=== PATIENT | male | born 1940 | race Caucasian/White ===

== ENCOUNTER 2019-08-18 12:04 | Inpatient (IN) | payer MEDICARE, OTHER ==
[2019-08-18] VITALS (15 sets, daily range): BP systolic 81–119; BP diastolic 34–71
[~2019-08-18] VITALS: Ht 175.3 cm; Wt 87.6 kg
[~2019-08-18 12:04] MED LIST: ASPIRIN EC81 MG PO; CARVEDILOL6.25 MG PO; CRESTOR40 MG PO; LASIX20 MG PO; NEXIUM40 MG PO; NOVOLOG MI100 UNITS/; PLAVIX75 MG PO; SYSTANE 0.3-0.1 EACH TOP
[2019-08-18] MEDS ORDERED: SODIUM CHLORIDE 0.9% 1000ML 2,000 ML ONE (12:21)
[2019-08-18] MEDS ORDERED: NOREPINEPHRINE INJ 4MG/4ML 8 MG in DEXTROSE 5% 250ML 250 ML IV ONE (12:45)
[2019-08-18] MEDS ORDERED: SODIUM CHLORIDE 0.9% 1000ML 2,400 ML IV SCH (12:45)
[2019-08-18] MEDS ORDERED: NOREPINEPHRINE 8 MG/D5W 250 ML 250 ML ONE (12:52)
[2019-08-18] MEDS ORDERED: ONDANSETRON HCL INJ 2MG/ML 2ML 2 MG/ML VIAL ONE (13:22)
[2019-08-18] MEDS ORDERED: FAMOTIDINE 20 MG/2 ML VIAL IV ONE ×2 (13:23→14:00)
[2019-08-18] MEDS ORDERED: PIPER-TAZ 3.375 GM 50 ML IV ONE (13:30)
--- NOTE | 2019-08-18 13:40 | Diagnostic Imaging Report ---
EXAMINATION: CHEST SINGLE (PORTABLE) INDICATION: Line placement COMPARISON: None FINDINGS: LINES/TUBES:Right IJ central venous catheter terminates in the superior vena cava. Left chest AICD. EKG leads overlie the chest. LUNGS:The lungs are well-inflated. There is perihilar fullness and indistinctness of the pulmonary vasculature. PLEURA:No pleural effusion or pneumothorax. MEDIASTINUM:The heart is enlarged. Atherosclerotic calcifications of the thoracic aorta. BONES/SOFT TISSUES:No acute osseous injury. ABDOMEN:No free air under the diaphragm. IMPRESSION: Right IJ central venous catheter terminates in the superior vena cava. Cardiomegaly and mild pulmonary edema. Signed by: Luis Solano MD on 08/18/2019 1:37 PM
[2019-08-18 13:52] LABS: BILIRUBIN,URINE NEGATIVE (NEGATIVE); CLARITY,URINE CLEAR (CLEAR); COLOR,URINE YELLOW (YELLOW); KETONES,URINE NEGATIVE (NEGATIVE); LEUKOCYTE ESTERASE ,URINE NEGATIVE (NEGATIVE); NITRITE,URINE NEGATIVE (NEGATIVE); PROTEIN,URINE DIPSTICK NEGATIVE (NEGATIVE); URINE UROBILINOGEN 0.2 mg/dL (0.2 - 1)
[2019-08-18 13:54] LABS: BASOPHILS % 0.3 % (0.0-1.0); EOSINOPHILS % 0.1 % (0.0-6.0); HEMATOCRIT 36.2 % (38.2-49.6); HEMOGLOBIN 11.8 g/dL (14.0-18.0); LYMPHOCYTES # (AUTO) 1.1 (1.0-3.2); LYMPHOCYTES % 7.9 % (18.0-39.1); MEAN CORPUSCULAR HEMOGLOBIN 31.2 pg (28-32); MEAN CORPUSCULAR HGB CONC 32.6 g/dL (31-35); MEAN CORPUSCULAR VOLUME 95.8 fL (81-99); MONOCYTES % 7.2 % (4.4-11.3); NEUTROPHILS # (AUTO) 11.5 (2.1-6.9); NEUTROPHILS % 84.1 % (38.7-80.0); PLATELET COUNT 158 x10e3/uL (140-360); RED BLOOD COUNT 3.78 x10e6/uL (4.3-5.7); RED CELL DISTRIBUTION WIDTH 12.4 % (11.7-14.4)
[2019-08-18] MEDS ORDERED: ONDANSETRON HCL INJ 2MG/ML 2ML 2 MG/ML VIAL IV ONE (14:00)
--- NOTE | 2019-08-18 14:00 | NUR ---
see printed off vital sign sheet to chart
[2019-08-18 14:06] LABS: ALBUMIN 2.8 g/dL (3.5-5.0); ALBUMIN/GLOBULIN RATIO 1.2 (0.8-2.0); CREATININE, SERUM 2.45 mg/dL (0.72-1.25)
[2019-08-18 14:15] LABS: AMORPHOUS SEDIMENT,URINE FEW (FEW); BACTERIA,URINE FEW /HPF; RBC,URINE 0-5 /HPF (0-5)
[2019-08-18 14:22] LABS: B-TYPE NATRIURETIC PEPTIDE2 294.5 pg/mL (0-100)
[2019-08-18] MEDS ORDERED: LACTOBACILLUS ACIDOPHILUS CAPSULE PO ONE (14:30)
[2019-08-18] MEDS ORDERED: SODIUM CHLORIDE 0.9% 1000ML 2,000 ML IV SCH (14:30)
[2019-08-18] MEDS ORDERED: ASPIRIN 81 MG CHEW TAB PO ONE ×2 (14:45→22:00)
[2019-08-18] MEDS ORDERED: DEXTROSE 50% SYRINGE 50 ML IV PRN ×2 (14:45→23:15)
[2019-08-18] MEDS ORDERED: ONDANSETRON HCL INJ 2MG/ML 2ML 2 MG/ML VIAL IV PRN (14:45)
[2019-08-18] MEDS ORDERED: SODIUM CHLORIDE FLUSH 10 ML SYR INJ PRN (14:45)
[2019-08-18] MEDS: SODIUM CHLORIDE 0.9% 1000ML 1,000 ML IV SCH ×2 (14:50→22:37)
--- OUTSIDE RECORDS SUMMARY | 2019-08-18 14:57 | XMS REPORT ---
Author Author [facility] Address Unknown Phone Unavailable Care Team Providers Care Data Coordinator Name Role Phone Iris ALBRIGHT Unavailable Unavailable Problems This patient has no known problems. Allergies, Adverse Reactions, Alerts This patient has no known allergies or adverse reactions. Medications This patient has no known medications. Results Test Description Test Time Test Comments Text Results Atomic Results Result Comments CHEST SINGLE (PORTABLE) 2019-08-18 13:34:00 [place] [address] Patient Name: ROHIT POSEY MR #: [id number] : 1940 Age/Sex: 79/M Req #: [id number] Adm Physician: Ordered by: SAYDA ALBRIGHT MD Report #: [id number] Location: ER Room/Bed: Procedure: [id number] DX/CHEST SINGLE (PORTABLE) Exam Date: 08/18/19 Exam Time: 1321 REPORT STATUS: Signed EXAMINATION: CHEST SINGLE (PORTABLE) IND ICATION: Line placement COMPARISON: None FINDINGS: LINES/TUBES:Right IJ central venous catheter terminates in the superior vena cava. Left chest AICD. EKG leads overlie the chest. LUNGS:The lungs are well-inflated. There is perihilar fullness and indistinctness of the pulmonary vasculature. PLEURA:No pleural effusion or pneumothorax. MEDIASTINUM:The heart is enlarged. Atherosclerotic calcifications of the thoracic aorta. BONES/SOFT TISSUES:No acute osseous injury. ABDOMEN:No free air under the diaphragm. IMPRESSION: Right IJ central venous catheter terminates in the superior vena cava. Cardiomegaly and mild pulmonary edema. Signed by: Dane Solnao MD on 08/18/2019 1:37 PM Dictated By: DANE SOLANO MD [id number] Transcribed By: JOSEPHINE on 08/18/19 2047 COPY TO: SAYDA ALBRIGHT MD
[2019-08-18] MEDS ORDERED: DIATRIZOATE MEGL/DIATRIZOA SOD 30 ML BTL PO ONE (15:16)
--- NOTE | 2019-08-18 15:21 | NUR ---
H&P cc: diarrhea/abdominal pain HPI: 79yoM, admitted to hospital with diarrhea and abdominal pain, found to be septic. Started on IVF and antibiotics and pressors; PMH: HTN, HLD, Pshx: unknown Allergies; see emr FH/SH; unknown Meds; see MAR ROS: unreliable v/s; revd PE BIPAP mask in place tired appearing anicteric ns1s2 reduced BS soft; nd; mild tenderness no e/t awake; skin dry flat affect labs/meds revd A/P: 79yoyoM Septic shock Diarrhea DEON/AMS Acute resp falure Acute cholecystitis NSTEMI DM2 PLAN IV abx; IVF; Heparin gtt Sx consult; Pulm consult; Cardio consult hba1c/lipids C.diff testing Insulin gtt PPI on AC Dispo: f/u further testing; cct>35mins
--- NOTE | 2019-08-18 15:30 | NUR ---
RECEIVED PT FROM ER, 2L BOLUS INFUSING PT ON LEVOPHED AT 30, BP 86/34. PAGED MD MARIE AWAITING CALL BACK. DR. TENA SHELTON RECEIVED ORDERS
--- NOTE | 2019-08-18 15:50 | NUR ---
SPOKE TO RECEIVED ORDERS FOR VASOPRESSIN, NOTIFY OF SUJATHA MONTGOMERY STATES HE WILL BE HERE LATER TO SEE PATIENT
[2019-08-18] MEDS ORDERED: VASOPRESSIN 100 UNIT in DEXTROSE 5% 100ML 100 ML IV PRN (16:00)
[2019-08-18 16:22] LABS: ABG HCO3 14 mmol/L (23-28); ABG PCO2 30 mmHg (41-51); ABG PH 7.28 (7.31-7.41); ABG PO2 193 mmHg (80-105)
[2019-08-18] MEDS ORDERED: PHENYLEPHRINE 10MG/ML VIAL 40 MG in DEXTROSE 5% 250ML 250 ML IV PRN (16:30)
--- NOTE | 2019-08-18 16:30 | NUR ---
PT BEGAN VOMITING, NOTIFIED RECEIVED ORDERS FOR PHENERGAN WILL MEDICATED ACCORDING TO MAR
[2019-08-18] MEDS ORDERED: PROMETHAZINE 12.5MG/ NACL 0.9% 50 ML ONE (16:42)
[2019-08-18] MEDS ORDERED: PROMETHAZINE 12.5MG/ NACL 0.9% 12.5 MG/50 ML BAG IV PRN (16:45)
[2019-08-18] MEDS: NOREPINEPHRINE 8 MG/D5W 250 ML 250 ML IV SCH ×2 (17:00→22:20)
[2019-08-18] MEDS ORDERED: ENOXAPARIN SOD INJ 40 MG/0.4 ML SYR SC SCH (17:00)
--- NOTE | 2019-08-18 17:00 | NUR ---
PT BP 89/58 PT STARTED ON PHENYLEPHRINE, WILL CONTINUE OT MONITOR CLOSELY
[2019-08-18] MEDS: INSULIN REGULAR, HUMAN 100 UNIT/1 ML 3ML VIAL SQ SCH ×2 (17:05→21:00)
--- NOTE | 2019-08-18 18:16 | NUR ---
HERE TO SEE PATIENT EXPLAINED AT LENGTH WHO HE WAS AND WHY HE WAS HERE TO SEE HIM, PT STATES HE DOES NOT WISH TO SEE HIM AND THAT HE HAS BEEN SICK FOR A LONG TIME, PT ASKED DO YOU THINK I NEED TO SEE HIM THIS RN STATED THAT HE HAD AN INFECTION WHICH IS WHY MD WAS HERE TO SEE HIM, ASKED IF HE UNDERSTOOD WHAT WAS BEING TOLD TO HIM PT STATES THAT HE DOES. ASKED IF HE WOULD LIKE FOR HIM TO SEE HIM PT STATES NO I DO NOT. INFORMED .
--- NOTE | 2019-08-18 21:09 | Diagnostic Imaging Report ---
EXAM: CT Chest, Abdomen and Pelvis WITHOUT contrast INDICATION: Weakness and shortness of breath COMPARISON: None. TECHNIQUE: Chest, abdomen and pelvis were scanned utilizing a multidetector helical scanner from the lung apex to the pubic symphysis without administration of IV contrast. Absence of intravenous contrast decreases sensitivity for detection of focal lesions and vascular pathology. Coronal and sagittal reformations were obtained. Routine protocol was performed. Dose modulation, iterative reconstruction, and/or weight based adjustment of the mA/kV was utilized to reduce the radiation dose to as low as reasonably achievable. IV CONTRAST: None. ORAL CONTRAST: None RADIATION DOSE: Total DLP: 950.66 mGy*cm Estimated effective dose: (DLP x 0.015 x size factor) mSv COMPLICATIONS: None FINDINGS: LINES and TUBES: Implanted cardiac device in the soft tissues of the anterior upper left chest with transvenous leads extending to right atrium, right ventricle and coronary sinus. Alvarez catheter is noted. An apparent rectal tube is present. LUNGS AND AIRWAYS: Mild central lobular emphysema with bronchial wall thickening and mild bronchiectasis. Subpleural fibrotic changes in the lung bases. Multiple pulmonary nodules in the left upper lobe (series 4, image [id number]) measuring up to 5 mm. Trachea and main bronchi are clear. PLEURA: Small bilateral pleural effusions. No pneumothorax. HEART AND MEDIASTINUM: The thyroid gland is normal. No mediastinal, hilar or axillary lymphadenopathy. Evaluation for hilar adenopathy is compromised without contrast. Moderate cardiomegaly.. There is no pericardial effusion. Thoracic aorta is atherosclerotic. Extensive coronary artery calcification. Aortic valve calcifications. No dilatation of the thoracic aorta or main pulmonary artery. HEPATOBILIARY: No focal hepatic lesions. No biliary ductal dilation. GALLBLADDER: There is ill-defined radiopaque material within the gallbladder which may represent sludge or minimally opaque calculus. The gallbladder wall appears thickened. There is some fat stranding adjacent to the gallbladder. SPLEEN: No splenomegaly. PANCREAS: No focal masses or ductal dilatation. ADRENALS: No adrenal nodules KIDNEYS/URETERS: No hydronephrosis. No cystic or solid mass lesions. No stones. GI TRACT: No abnormal distention, wall thickening, or evidence of bowel obstruction. There is thickening of the wall of the gastric antrum and proximal duodenum. The appendix is not conspicuously visualized. PELVIC ORGANS/BLADDER: Urinary bladder contains a Alvarez catheter and is decompressed. There is some air in the bladder. A balloon is seen in the rectum. Seeds are seen in the prostate bed. No discrete abnormal mass or fluid collection in the pelvis. LYMPH NODES: No dominant lymph node mass is seen in the abdomen, retroperitoneum or pelvis. VESSELS: Extensive aortoiliac atherosclerosis with calcified plaque. No aneurysm. PERITONEUM / RETROPERITONEUM: No pneumoperitoneum or ascites. BONES: No acute or suspicious bony lesions. There are degenerative changes in the lumbar spine with particular disc space narrowing at L4-5. Wire sternotomy sutures are present. SOFT TISSUES: Superficial surrounding soft tissue shows subcutaneous air over the lower anterior abdomen likely representing an injection site. IMPRESSION: 1. There is ill-defined radiopaque material in the gallbladder likely representing sludge, with gallbladder wall thickening and adjacent fat stranding. Findings are suspicious for cholecystitis. There is also wall thickening of the gastric antrum and proximal duodenum and gastritis or duodenal ulcer disease is also a consideration. 2. Extensive atherosclerotic calcification. 3. Moderate centrilobular emphysema. Nodular densities in the left upper lobe are of indeterminate significance. Consider follow-up noncontrast chest CT in 3 months to reassess for stability. Signed by: Dr. Nando Lopez M.D. on 08/18/2019 9:06 PM
--- NOTE | 2019-08-18 21:09 | Consultation ---
DATE OF CONSULTATION: 08/18/2019 I was consulted to see the patient for Infectious Disease consultation. I came to see the patient. I went in the room, the nurse was at the bedside. I indicated to the patient after introducing myself that his physician wanted to come to see him on consult. The patient states he does not want me to see him on Infectious Disease consultation at this point. I have called and informed Dr. Odonnell. MD LUC Hale/KETTY /[id number]
[2019-08-18 21:49] LABS: CREATINE KINASE MB 145.2 ng/mL (0-5.0)
--- NOTE | 2019-08-18 21:55 | NUR ---
Spoke to Dr. Odonnell regarding patient's CT Abd/Pelvis results, elevated troponins and glucose. Multiple orders and consults received and initiated.
[2019-08-18] MEDS ORDERED: PIPER-TAZ 3.375 GM / NS 50ML IV SCH (22:00)
--- NOTE | 2019-08-18 22:00 | NUR ---
Spoke to Dr. Tinsley regarding new consult, patient's status, and current orders. New orders received and implemented.
--- NOTE | 2019-08-18 22:10 | NUR ---
Call placed to Dr. Sandy Nazario to inform of new consult and patient's status. Awaiting callback.
[2019-08-18] MEDS ORDERED: HEPARIN 25,000 UNIT 900 UNIT in DEXTROSE 5% 250ML 250 ML IV SCH (22:15)
[2019-08-18 22:29] LABS: CHOL/HDL RATIO 2.8 (3.9-4.7)
[2019-08-18] MEDS ORDERED: HEPARIN SOD (PORCINE) 1000 UNIT/ML 10ML MDV IM ONE ×2 (22:30→23:00)
[2019-08-18 22:39] LABS: CREATINE KINASE MB 161.8 ng/mL (0-5.0)
[2019-08-18] MEDS ORDERED: HEPARIN 25,000 UNIT DRIP IV ONE (22:49)
[2019-08-18] MEDS ORDERED: HEPARIN SOD (PORCINE) 1000 UNIT/ML SDV ONE (22:50)
[2019-08-18] MEDS ORDERED: HEPARIN SOD (PORCINE) 5,000 UNIT/ML VIAL INJ ONE (22:51)
[2019-08-18 23:00] LABS: INR 1.17; PARTIAL THROMBOPLASTIN TIME 33.4 seconds (23.8-35.5); PROTHROMBIN TIME 15.5 seconds (11.9-14.5)
[2019-08-18] MEDS ORDERED: POTASSIUM CHLORIDE 20MEQ/100ML 100 ML IV PRN (23:00)
[2019-08-18] MEDS: HEPARIN 25,000 UNIT 25,000 UNIT in DEXTROSE 5% 250ML 250 ML IV SCH (23:00)
[2019-08-18] MEDS ORDERED: POTASSIUM CHLORIDE 20MEQ/100ML 200 ML IV PRN (23:00)
[2019-08-18] MEDS ORDERED: MAGNESIUM SULF 1GRAM/DEXTROSE 100 ML IV PRN (23:00)
[2019-08-18] MEDS: SODIUM BICARBONATE 8.4% 50 ML in SODIUM CHLORIDE 0.9% 1000ML 1,000 ML IV SCH (23:00)
[2019-08-18] MEDS ORDERED: INSULIN REGULAR, HUMAN 3ML VL 100 UNIT in SODIUM CHLORIDE 0.9% 100 ML 100 ML IV SCH ×2 (23:00)
[2019-08-18] MEDS: PANTOPRAZOLE 40 MG 10ML VIAL IV SCH (23:00)
[2019-08-18] MEDS ORDERED: SODIUM CHLORIDE 0.9% 100 ML ONE (23:08)
[2019-08-18] MEDS ORDERED: INSULIN REGULAR, HUMAN 3ML VL 100 UNIT in SODIUM CHLORIDE 0.45% 100 ML 100 ML IV SCH ×2 (23:15)
[2019-08-18] MEDS ORDERED: SODIUM BICARBONATE 8.4% SYRING 50 ML ONE (23:19)
[2019-08-18 23:25] LABS: CREATINE KINASE MB 165.1 ng/mL (0-5.0)
[2019-08-18] MEDS: PIPER-TAZ 3.375 GM 50 ML IV SCH (23:32)
--- NOTE | 2019-08-18 23:35 | Consultation ---
DATE OF CONSULTATION: 08/18/2019 Critical Care Consultation REASON FOR CONSULT: ICU management. CHIEF COMPLAINT: Abdominal pain. HISTORY OF PRESENT ILLNESS: Mr. Espinosa is an 79-year-old male who is a patient of Dr. Blas Pond, presented with abdominal pain to the emergency room. The patient reports that he was checked his blood sugar this morning and was running low and he was having vomiting and diarrhea. He is still having abdominal pain. It is very tender. He had severe diarrhea and this has occurred several times, which it was watery. He denies any chest pain, shortness of breath. No black stools. He has AICD pacemaker and congestive heart failure. In the emergency room, patient became hypotensive, was given 3 L of fluid, started on vasopressors, IV antibiotics were started. ID and Critical Care consultation were done and the patient was moved to ICU. REVIEW OF SYSTEMS: GENERAL: Denies any fever or chills. HEAD: Denies any head trauma. ENT: Denies any earache. CVS: Denies any chest pain. RESPIRATORY: Denies any shortness of breath. GI: Denies any nausea or vomiting. MUSCULOSKELETAL: Denies any arthralgias, myalgias. NEURO: Denies any focal weakness. The rest of the review of systems are negative except as in HPI. PAST MEDICAL HISTORY: Chronic coronary artery disease, diabetes, hypertension, AICD, heart failure. PAST SURGICAL HISTORY: CABG, bypass surgery. FAMILY AND SOCIAL HISTORY: He does not smoke. Does not drink. PHYSICAL EXAMINATION: VITAL SIGNS: Temperature 98.2, pulse of 90, blood pressure 109/55, respiratory rate is 18, and O2 saturation 100% on 2 L. HEENT: Head atraumatic, normocephalic. NECK: Supple. CHEST: No crackles. No wheezing. HEART: S1, S2 audible. ABDOMEN: Severely tender on exam. Bowel sounds are sluggish. EXTREMITIES: No pedal edema. NEUROLOGIC: Awake, alert. LABORATORY DATA: Lactic acid 3.4, 5.7 was initially, BNP 294. CT abdomen and pelvis was not done. Chest x-ray reviewed, no congestion. ASSESSMENT AND PLAN: Mr. Espinosa is 79-year-old male with septic shock, lactic acid is high, moderate to severe abdominal pain. CT abdomen was not done in the emergency room. Current problem: 1. Septic shock, etiology possibly abdominal. We will do CT chest, abdomen, pelvis to rule out any etiology of the septic shock. 2. Agree with IV Zosyn for now. 3. The patient is on multiple vasopressors, which will be continued. Cortisol level is pending. 4. Lovenox subcu for deep vein thrombosis prophylaxis. 5. I will start the patient on Pepcid for gastrointestinal prophylaxis as well. Oxygen as needed to keep the O2 saturation more than or equal to 92%. ABG reviewed. No need for any intubation at this point. Critical care time spent 50 minutes. MD CHIQUIS Glynn/KETTY /[id number]
--- NOTE | 2019-08-18 23:37 | NUR ---
Pt states he has a [employer] Pacemaker. Dr. Tinsley requesting interrogation in the morning.
[2019-08-18 23:40] LABS: ALBUMIN 2.9 g/dL (3.5-5.0); ALBUMIN/GLOBULIN RATIO 1.1 (0.8-2.0); ANION GAP 18.6 mmol/L (8-16); CALCIUM 7.7 mg/dL (8.4-10.2); CREATININE, SERUM 2.81 mg/dL (0.72-1.25); POTASSIUM 4.6 mmol/L (3.5-5.1)
[2019-08-19] VITALS (27 sets, daily range): BP systolic 77–132; BP diastolic 47–92
[2019-08-19] MEDS: CLINDAMYCIN 300MG 50 ML IV SCH ×3 (00:05→14:15)
--- NOTE | 2019-08-19 00:15 | NUR ---
RN contacted [employer] at [phone] regarding pacemaker interrogation. Local [employer] hospital sales representative was paged by answering service and will arrive in the morning to interrogate. Dr. Tinsley notified.
--- NOTE | 2019-08-19 00:45 | NUR ---
Spoke to Dr. Wells for new consultation. No new orders at this time. States he will see patient in AM.
[2019-08-19 01:07] LABS: ANION GAP 18.6 mmol/L (8-16); CALCIUM 7.8 mg/dL (8.4-10.2); CREATININE, SERUM 2.93 mg/dL (0.72-1.25); POTASSIUM 4.6 mmol/L (3.5-5.1)
[2019-08-19] MEDS ORDERED: CLINDAMYCIN 300MG 50 ML IV SCH (06:00)
--- NOTE | 2019-08-19 06:04 | NUR ---
RN spoke to Petros from [employer] regarding interrogation of patient's pacemaker. Petros stated that a tech would arrive between [id number] this morning.
[2019-08-19] MEDS: PIPER-TAZ 3.375 GM 50 ML IV SCH ×2 (06:05→14:15)
[2019-08-19 06:22] LABS: BASOPHILS % 0.2 % (0.0-1.0); HEMATOCRIT 38.6 % (38.2-49.6); HEMOGLOBIN 12.4 g/dL (14.0-18.0); LYMPHOCYTES % 10.9 % (18.0-39.1); MEAN CORPUSCULAR HEMOGLOBIN 30.9 pg (28-32); MEAN CORPUSCULAR HGB CONC 32.1 g/dL (31-35); MEAN CORPUSCULAR VOLUME 96.3 fL (81-99); MONOCYTES # (AUTO) 2.2 (0.2-0.8); MONOCYTES % 11.8 % (4.4-11.3); NEUTROPHILS % 76.4 % (38.7-80.0); PLATELET COUNT 215 x10e3/uL (140-360); RED BLOOD COUNT 4.01 x10e6/uL (4.3-5.7); RED CELL DISTRIBUTION WIDTH 12.7 % (11.7-14.4)
[2019-08-19] MEDS ORDERED: SODIUM CHLORIDE 0.9% 1000ML 1,000 ML ONE (06:42)
[2019-08-19] MEDS ORDERED: SODIUM BICARBONATE 8.4% SYRING 50 ML ONE (06:44)
[2019-08-19] MEDS: SODIUM BICARBONATE 8.4% 50 ML in SODIUM CHLORIDE 0.9% 1000ML 1,000 ML IV SCH (07:05)
[2019-08-19 07:07] LABS: CREATINE KINASE MB 165.8 ng/mL (0-5.0)
[2019-08-19 07:08] LABS: CREATININE, SERUM 3.34 mg/dL (0.72-1.25); MAGNESIUM 1.8 MG/DL (1.3-2.1)
--- NOTE | 2019-08-19 07:16 | NUR ---
Attempted to reach Dr. Nazario at 2330 (08/18) and 0600 (08/19) regarding new consultation order from Dr. Odonnell. Stated Dr. Lara is covering for a few days. Will call Dr. Lara to confirm consultation. Addendum: 08/19/19 at 0723 by Anju Santana RN Notified Dr. Lara of new consultation. States he will be by to see patient today.
--- NOTE | 2019-08-19 07:27 | NUR ---
RECEIVED CRITICAL TROPONIN WHICH IS INCREASING, PAGED
[2019-08-19] MEDS ORDERED: ACETAMINOPHEN 325 MG TAB PO PRN (07:30)
[2019-08-19] MEDS ORDERED: SODIUM BICARBONATE 8.4% 100 ML in SODIUM CHLORIDE 0.45% 1,000 ML IV SCH (08:00)
--- NOTE | 2019-08-19 08:45 | NUR ---
ROUNDING ON PATIENT SPOKE TO AT LENGTH TO DAUGHTER MORENA AND PATIENT REGARDING POC INCLUDING MEDICAL MANAGEMENT AND POSSIBLE BALLOON PUMP INTERVENTION FAMILY STATED THEY NEEDED TO DISCUSS AND WILL NOTIFY RN ALL QUESTIONS ANSWERED. PER MD KEEP BP LOW POSSIBLE WITH MAP OF 65-70 AT THIS TIME
[2019-08-19] MEDS: ASPIRIN 81 MG ENTERIC COATED PO SCH (08:54)
[2019-08-19] MEDS: PANTOPRAZOLE 40 MG 10ML VIAL IV SCH ×2 (08:54→20:04)
--- NOTE | 2019-08-19 09:40 | NUR ---
IM- progress note O/N no change ROS: unreliable v/s; revd PE BIPAP mask in place tired appearing anicteric ns1s2 reduced BS soft; nd; mild tenderness no e/t awake; skin dry flat affect labs/meds revd A/P: 79yoyoM Septic shock Diarrhea DEON/AMS Acute resp falure Acute cholecystitis NSTEMI DM2 PLAN IV abx; IVF; Heparin gtt Sx consult; Pulm consult; Cardio consult hba1c/lipids C.diff testing Insulin gtt PPI on AC Dispo: f/u further testing; cct>35mins 08/19/19 cont IV abx; give IVF with bicarbs; nephr consult; Hba1c 6.5; monitor closely; recheck labs later today; cct>35mins.
--- NOTE | 2019-08-19 10:00 | Diagnostic Imaging Report ---
Right upper quadrant abdominal ultrasound, 08/19/2019. History: Abdominal pain. Comparison: CT of the chest, abdomen, and pelvis dated 08/18/2019. Discussion: Transverse and longitudinal images of the right upper quadrant of the abdomen were obtained demonstrating a liver of normal size and echogenicity measuring 3.2 cm in length. There is no evidence of a focal hepatic mass. The portal vein is patent with hepatopetal flow and is within normal limits measuring 10 mm in diameter. The biliary tree is within normal limits with the common bile duct measuring 4 mm in diameter. The gallbladder contains echogenic sludge. The gallbladder wall measures 2 mm in thickness. There is no pericholecystic fluid. The sonographic Webb's sign was negative. The right kidney is normal in size and echogenicity without evidence of hydronephrosis, stones, or mass and measures 9.0 cm in length. The pancreas and aorta are poorly visualized secondary to overlying bowel gas. There is no evidence of free fluid. IMPRESSION: Gallbladder sludge. No gallstones are identified. If there is high clinical concern for acute acalculus cholecystitis a HIDA scan may be performed. Signed by: Zach Marina MD on 08/19/2019 9:56 AM
[2019-08-19] MEDS: MIDODRINE HCL 5 MG TABLET PO SCH ×2 (10:50→16:00)
[2019-08-19] MEDS ORDERED: CALCIUM GLUCONATE IV ONE (11:00)
[2019-08-19] MEDS ORDERED: CALCIUM GLUCONATE 10% INJ 4.65 MEQ in SODIUM CHLORIDE 0.9% 100 ML IV ONE (11:00)
[2019-08-19] MEDS ORDERED: SODIUM CHLORIDE 0.9% IV ONE (11:00)
--- NOTE | 2019-08-19 11:17 | Consultation ---
DATE OF CONSULTATION: 08/19/2019 Cardiology Consultation CONSULTING PHYSICIAN: Epi Hdz M.D., Interventional Cardiology. REASON FOR CONSULTATION: AL. HISTORY OF PRESENT ILLNESS: Mr. Espinosa is an 79-year-old man with history of coronary artery disease, status post aortocoronary bypass; chronic severe systolic heart failure, status post ICD, [employer]; and history of hypertension, presents with abdominal pain and diarrhea associated with hypotension to the Emergency Department. He was having tenderness on exam per report from ER physician, and also vomiting associated to this. Due to hypotension, he was admitted into the Intensive Care Unit after several bouts of IV fluids were administered and he was started on pressors at some point on vasopressin, Levophed, and phenylephrine. His cardiac biomarkers trended up significantly and his creatinine increased along with an oliguric evening, achieving less than 200 mL overall. Gabe denies any chest discomfort or shortness of breath throughout his hospitalization. He did report an episode of chest pain lasting several days, last day which he reports to have been Sunday. He currently has no complaints initially with depressed sensorium, now tired, but arousable and able to hold a conversation. REVIEW OF SYSTEMS: Twelve-system review is negative except for as noted above. ALLERGIES: NO KNOWN DRUG ALLERGIES. PAST MEDICAL HISTORY: Chronic systolic heart failure; CAD, status post bypass; hypertension; and dyslipidemia. SOCIAL HISTORY: Negative x3. FAMILY HISTORY: Noncontributory. PHYSICAL EXAMINATION: VITAL SIGNS: Temperature 99.5; heart rate 85; respiratory rate 20; blood pressure 97/56 on maxed out Levophed and phenylephrine trending down to maintain MAP 65-70 as per conversations with nursing staff; and O2 saturation 95% on 2 L/minute nasal cannula. GENERAL: In no acute distress. NECK: No JVD. CHEST: Clear to auscultation. CARDIOVASCULAR: Regular rate and rhythm. Normal S1, S2. No S3 or S4. Systolic ejection murmur, 2/6. ABDOMEN: Soft, tender in the right upper quadrant. No rebound or guarding. ABDOMEN: Bowel sounds positive. EXTREMITIES: No edema. Warm distal lower extremities. NEUROLOGIC: Somnolent, but arousable. On telemetry, paced rhythm. CARDIOVASCULAR MEDICATIONS: Reviewed, aspirin 81 mg daily, heparin IV drip, vasopressin, phenylephrine, Levophed, and insulin drip. LABORATORY AND DIAGNOSTIC DATA: Echocardiogram reviewed, technically difficult with suboptimal views. Left ventricle is mildly dilated with left ventricular systolic function severely impaired, LVEF of 25% to 30%, restrictive LV filling pattern consistent with elevated LA pressure, left atrium is dilated, mild mitral regurgitation, and mild tricuspid regurgitation. Studies reviewed. White blood cells 18.3, hemoglobin 12.4, and platelets 215. Sodium 138; potassium 4; chloride 109; bicarbonate 19; BUN 38, creatinine 3.34, trending up, glucose 328. Lactic acid peaked at 5.7 and now at 2.1. AST 250 trending up, ALT 124, trending up. CK 951, then 1117, then 1110, then 1435. CK-MB 145, then 161, then 165, then 165. Troponin I 0.017, then 40.5, then 52.07, then 61.65, then 171.98. Albumin 3 and total protein 6. ASSESSMENT: 1. Severe sepsis with septic shock. 2. Myocardial infarction, non-ST elevation myocardial infarction with extensive elevation in cardiac biomarkers. 3. Profound shock, on three pressors. 4. Severe acute on chronic systolic heart failure with left ventricular ejection fraction of 25% to 30% and restrictive left ventricular filling. 5. History of hypertension and dyslipidemia. 6. History of aortocoronary bypass. 7. Oliguric, [id number] renal failure. RECOMMENDATIONS: 1. Continue IV fluid hydration for now. The patient seems to have been significant volume depleted. 2. Continue to wean pressors as tolerated to maintain MAP of 65-70. 3. Consider adding dopamine and weaning off phenylephrine first and then Levophed as tolerated. 4. Aspirin. 5. IV heparin. 6. Statins on hold given elevated LFTs. 7. Guarded prognosis. I have discussed with Mr. Bernal as well as with the daughter per his request. Indications, alternatives, risks, and benefits for intra-aortic balloon pump placement for supportive of his non-ST elevation myocardial infarction in the setting of profound shock and ongoing acute renal failure. At this point in time, Gabe has no complaints of chest pain or shortness of breath. Given oliguric and acute renal failure, he is currently not a candidate for coronary angiography and medical management is advised. Gabe at this point does not want to proceed with intra-aortic balloon pump placement, however, I have offered the patient further clarification of indications, alternatives, risks, and benefits, which the patient was understanding too. He will discuss further with family and if he decides on proceeding in the future, I have instructed nursing staff to contact me with this. His prognosis remains guarded with multiorgan failure and large AL. He is undergoing evaluation for possible cholecystitis. MD ANKIT Silva/KETTY /[id number]
[2019-08-19] MEDS ORDERED: INSULIN REGULAR, HUMAN 3ML VL 100 UNIT in SODIUM CHLORIDE 0.45% 100 ML 100 ML IV SCH ×4 (11:45→12:00)
[2019-08-19 12:11] LABS: CREATININE,URINE RANDOM 159.24 mg/dL (63-166); TOTAL PROTEIN, URINE 161.3 mg/dL (1-14)
[2019-08-19 12:27] LABS: SODIUM,URINE < 20 mmol/L
--- NOTE | 2019-08-19 12:28 | Consultation ---
DATE OF CONSULTATION: 08/19/[address] you Dr. Odonnell for the consultation. HISTORY OF PRESENT ILLNESS: Mr. Espinosa is a pleasant 79-year-old male with past medical history significant for chronic kidney disease stage 4. Baseline serum creatinine around 2.8 mg/dL. According to the patient, he is followed [facility]w [facility]. 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 The patient came into the hospital emergency room with complaints of abdominal pain, found to be hypotensive, has been placed on two pressors, also found to have myocardial infarction and may require intra-aortic balloon pump. Cardiology is following the patient. The patient also discovered on CAT scan of his abdomen and pelvis to have what appears to be cholecystitis. The patient is also going to be evaluated by Surgery. Renal consultation has been asked for the management of his acute kidney injury on chronic kidney disease stage 4. His creatinine has gone up to 3.3. He is also oliguric trending toward anuria. Currently, no fever, no chills, no nausea, no vomiting. No diarrhea. Does have abdominal pain. No shortness of breath. No dysuria, frequency, urgency of urination. In fact, he has all but scant urine output. PAST MEDICAL HISTORY: History of hypertension. He has coronary artery disease. He has a pacemaker, history of diabetes mellitus, history of chronic kidney disease stage 4, history of hyperlipidemia. MEDICATIONS ON ADMISSION: Aspirin, carvedilol, Plavix, Nexium, furosemide, insulin, Crestor. ALLERGIES: NO KNOWN DRUG ALLERGIES. SOCIAL HISTORY: No tobacco. No alcohol use. FAMILY HISTORY: Noncontributory. REVIEW OF SYSTEMS: See HPI. Otherwise all systems negative. MEDICATIONS: Have all been reviewed per chart. PHYSICAL EXAMINATION: VITAL SIGNS: Blood pressure is high 90s to low 100s/90s. He is on two pressors, pulse 102, afebrile, O2 saturation 100% on 2.5 L nasal cannula. HEENT: No cervical lymphadenopathy. NECK: Supple without masses. No obvious JVD. Moist appearing oral mucosa. SKIN: Moist with good skin turgor. CHEST: Chest wall with good expansion. No chest wall tenderness. LUNGS: Clear to auscultation bilaterally with minimal rales. CARDIOVASCULAR: S1, S2. No obvious gallop, rub or murmur. ABDOMEN: Soft. Positive bowel sounds. Nontender. No organomegaly. EXTREMITIES: There is no evidence of lower extremity edema. No clubbing. No cyanosis. NEUROLOGIC: Awake, alert, oriented x3. Grossly otherwise nonfocal exam. LABORATORY DATA: Sodium 138, potassium 4, chloride 109, bicarb 19, BUN 38, creatinine 3.3, glucose of 297, calcium 8. Magnesium 1.8. Troponin was 171, CK-MB 165, creatine kinase 1435. Cardiology is following patient. Lactic acid 2.1. Hematology; white count 18,000, H and H 12.4, 38.6, and platelet count of 215. CT scan of abdomen and pelvis was done without contrast and it shows probable cholecystitis. IMPRESSION AND PLAN: 1. Acute kidney injury on chronic kidney disease stage 4 at baseline. He likely has chronic kidney disease stage 4 from his history of diabetes mellitus and hypertension. He is followed in the outpatient setting. He has acute kidney injury likely secondary to acute tubular necrosis from hypoperfusion state secondary to probable sepsis. Sepsis, source likely is probable cholecystitis. The patient is empirically covered with IV antibiotics. The patient is on vasopressors as well. The patient is on IV fluids with bicarb. We will change the constitution of the bicarb drip slightly. We will change him to half-normal saline plus 75 mEq of sodium bicarb and run it at 100 mL/h. We will monitor for any possibility of fluid overload. If there is fluid overload then we would either decrease the bicarb drip rate or back off and discontinue the bicarb drip. For now, no current urgent indication for dialysis. He will benefit from correction of his metabolic acidosis with a bicarb drip as well as improvement in his blood pressure and correction of any electrolyte that could potentially improve his blood pressure such as low calcium levels. We will repeat labs in the morning including basic metabolic panel, Mag phos, CBC, ionized calcium and make further recommendations. Avoid potential nephrotoxic agents. Avoid LEONIE inhibitors, ARBs, non-steroidal anti-inflammatory drugs and IV dye. Would also recommend to dose all antibiotics for creatinine clearance less than 20 mL/minute. 2. Hypotension. Continue vasopressor support. Continue bicarb drip as outlined above. Corrected calcium and bicarb levels, which will help with improving his blood pressure. Would also consider adding low-dose midodrine to help improve his blood pressure. We note the pressors. 3. Metabolic acidosis, likely from acute kidney injury on chronic kidney disease as well as from hypoperfusion state. We will change the bicarb drip to half NS plus 75 mEq of sodium bicarbonate at 100 mL/h. Make further recommendations. 4. Acute myocardial infarction. Plan would be as per Cardiology recommendation. Thank you once again for the consultation Dr. Odonnell. We will follow the patient closely along with you and make further recommendations. At present time, there is no current urgent indication for dialysis. We will follow the patient closely along with you and make further recommendation. Scar Dillon MD TH/MODL /[id number] cc: Salty Odonnell MD
--- NOTE | 2019-08-19 12:28 | Consultation ---
DATE OF CONSULTATION: 08/19/2019 HISTORY OF PRESENT ILLNESS: The patient an 79-year-old male, who came to the emergency room, apparently reports complaining of abdominal pain. The patient says his primary complaint was shortness of breath. He says symptoms started yesterday or the day before associated nausea, vomiting, diarrhea. At this point, he says he has no abdominal pain. He was evaluated CT scan of the abdomen and pelvis, which reveals some inflammatory changes around the gallbladder with some thickening of the antrum of the stomach and duodenum. The patient has required pressor support while in the hospital, was found secondary to sepsis. He had been on three pressors now. He is requiring less pressor support. His shortness of breath is better also. He denies any abdominal pain at this time. PAST MEDICAL HISTORY: Significant for coronary artery disease, diabetes, hypertension, congestive heart failure. Apparently, his ejection fraction on echocardiogram was very low. He had previous coronary artery bypass surgery, an AICD. ALLERGIES: HE HAS NO KNOWN ALLERGIES. MEDICATIONS: At home are aspirin, carvedilol, Plavix, Nexium, Lasix, insulin, MiraLAX, and Crestor. FAMILY HISTORY: Noncontributory. SOCIAL HISTORY: The patient does not smoke cigarettes, does not drink alcohol. REVIEW OF SYSTEMS: He denies any chest pain. Denies abdominal pain at this time, denies shortness of breath. He has not had any fever or weight loss. PHYSICAL EXAMINATION: GENERAL: The patient is awake and alert this time. VITAL SIGNS: The heart rate is 84, blood pressure is 126/69. O2 saturation 100%, he is requiring pressor support. HEENT: The sclerae is nonicteric. NECK: No masses or tenderness. LUNGS: Equal breath sounds anteriorly with no crackles. CARDIAC: Regular rate and rhythm. Normal S1, S2 without murmur. S3, S4. ABDOMEN: Soft. There was no tenderness, no mass, no organomegaly. EXTREMITIES: Cool with no edema. NEUROLOGIC: Grossly intact. LABORATORY DATA: White blood cell count today is 18.3 up from 13.7, hemoglobin 12.4, hematocrit 38.6. Chemistries reveal a bicarb level of 14, elevated lactic acid, BUN and creatinine are also elevated. Liver function tests were mildly elevated. AST and ALT with normal bilirubin. ASSESSMENT: This is an 79-year-old male, who presented with findings of abdominal pain, tenderness, which are now better. Underlying lung disease and heart disease may have been exacerbation of congestive heart failure, leading to low flow and some intestinal ischemia, but the CT scan suggests possible gallbladder disease. PLAN: To evaluate further with a HIDA scan and gallbladder ultrasound. At this time, there are no signs of peritonitis, no findings of acute surgical abdomen or findings that would warrant immediate surgical intervention. Thank you for asking me to see Mr. Espinosa. MD KARLY Cosme/MODL /[id number]
--- NOTE | 2019-08-19 12:39 | Consultation ---
DATE OF CONSULTATION: 08/19/2019 This is a coverage for Dr. Nazario, Endocrine. REASON FOR REFERRAL: Hyperglycemia. HISTORY OF PRESENT ILLNESS: Mr. Espinosa is an 79-year-old gentleman, who presented on August 18, 2019, with abdominal pain and hypotension. The patient is being treated for the possibility of septic shock, possibly acute cholecystitis. The patient also found to have myocardial infarction with troponins as of now to 171. The patient is having hyperglycemia. The patient's at bedside, does not know the outpatient medicines that the patient is taking. PAST MEDICAL HISTORY: Coronary artery disease, diabetes, hypertension, AICD, heart failure, and CABG. MEDICATIONS: Per the chart record. ALLERGIES: NO KNOWN DRUG ALLERGIES. SOCIAL HISTORY/FAMILY HISTORY: Reported no smoking. No drinking. No drugs. He is . REVIEW OF SYSTEMS: Cannot get, as he is intubated. PHYSICAL EXAMINATION: VITAL SIGNS: Noted and reviewed per the chart record, unstable. GENERAL: Intubated. HEENT: Normocephalic. NECK: Supple. LUNGS: Bilateral air entry. CARDIAC: S1 and S2. ABDOMEN: Soft. EXTREMITIES: Trace edema. INTEGUMENT: No rash. LABORATORY DATA: Recent glucose ranging from 278 to 398 despite insulin drip initial settings. Creatinine was originally 2.45 and now 3.24. Hemoglobin A1c 6.5. IMPRESSION AND PLAN: 1. Hyperglycemia, critical. Diabetes with complications. 2. Non-ST elevation myocardial infarction. 3. Shock, treated for septic shock. 4. Possible cholecystitis versus other infection. 5. Kidney failure, acute. 6. [id number] systolic heart failure, 25% to 30% LVEF. 7. Adjust insulin drip upwards. The patient is not on steroids now. Continue treatment of other organ failure as per the other designated physicians, this is in coverage for Dr. Nazario. Confining to the glycemic control. Dr. Nazario will be back in 2 days. The family is to bring in the home list of diabetes medicines. Thank you very much for this consult, Dr. Odonnell. Call for questions. MD MIKKI Mendosa/MODL /[id number]
[2019-08-19 12:56] LABS: CREATINE KINASE MB 141.8 ng/mL (0-5.0)
[2019-08-19 12:57] LABS: ANION GAP 18.4 mmol/L (8-16); CALCIUM 8.8 mg/dL (8.4-10.2); CREATININE, SERUM 3.2 mg/dL (0.72-1.25); POTASSIUM 4.4 mmol/L (3.5-5.1)
--- NOTE | 2019-08-19 13:00 | NUR ---
NOTIFIED OF PT CARDIAC ENZYMES, NO MORE SERIAL ENZYMES REQUIRED, TO BE CHECKED DAILY. ALSO NOTIFIED THAT THIS RN HAD FOLLOWED UP WITH FAMILY REGARDING POC, FAMILY STATES THEY ARE STILL DISCUSSING IT
[2019-08-19] MEDS: SODIUM BICARBONATE 8.4% 75 ML in SODIUM CHLORIDE 0.45% 1,000 ML IV SCH ×2 (13:09→23:21)
--- NOTE | 2019-08-19 14:00 | NUR ---
PAGED TO NOTIFY OF US RESULTS AND TO INFORM THAT WE WHERE STILL WAITING ON HIDA SCAN, WAITING FOR CALL BACK
--- NOTE | 2019-08-19 15:59 | NUR ---
WOUND CARE NURSE INITIAL CONSULTATION. 79 YEAR OLD MALE ADMITTED TO [facility] WITH DX OF DEHYDRATION SYNDROME AND SEPSIS. HEAD TO TOE SKIN ASSESSMENT PERFORMED TODAY. PT PRESENTS WITH BLANCHABLE REDNESS TO SACRUM AND BILATERAL BUTTOCKS WELL WITH A 1X1X0.1CM TO RIGHT 4TH TOE. STRONG PALPABLE RIGHT DP AND PT PULSES. ECCHYMOSIS NOTED TO BILATERAL UPPER EXTREMITIES. THERE ARE NO OTHER AREAS OF CONCERN AT THIS TIME. NO S/S PF INFECTION. LABS: WBC: 18.32 ALB: 3.0 HGBA1C: 6.5 URINE AND BLOOD CULTURES PENDING. RECOMMENDATIONS: CONTINUE WITH ALTERNATING LOW AIR LOSS MATTRESS PROVIDE PT WITH BILATERAL HEEL PROTECTORS. APPLY BETADINE TO RIGHT 4TH TOE AND COVER DAILY. CONTINUE WITH ALLEVYN FOAM TO SACRUM AND BILATERAL BUTTOCKS DAILY. REPOSITION PT EVERY TWO HOURS AND PRN. THANKS FOR THIS CONSULTATION. Addendum: 08/19/19 at 1608 by Mallika Guillen RN Amended: Links added.
[2019-08-19 16:28] LABS: BASOPHILS # (AUTO) 0.1 (0.0-0.1); BASOPHILS % 0.3 % (0.0-1.0); HEMATOCRIT 36.3 % (38.2-49.6); HEMOGLOBIN 12.2 g/dL (14.0-18.0); LYMPHOCYTES # (AUTO) 2.9 (1.0-3.2); LYMPHOCYTES % 14.7 % (18.0-39.1); MEAN CORPUSCULAR HEMOGLOBIN 31.4 pg (28-32); MEAN CORPUSCULAR HGB CONC 33.6 g/dL (31-35); MEAN CORPUSCULAR VOLUME 93.6 fL (81-99); MONOCYTES # (AUTO) 2.2 (0.2-0.8); MONOCYTES % 11.2 % (4.4-11.3); NEUTROPHILS # (AUTO) 14.4 (2.1-6.9); NEUTROPHILS % 73.3 % (38.7-80.0); PLATELET COUNT 180 x10e3/uL (140-360); RED BLOOD COUNT 3.88 x10e6/uL (4.3-5.7); RED CELL DISTRIBUTION WIDTH 12.8 % (11.7-14.4)
[2019-08-19 16:45] LABS: ANION GAP 12.7 mmol/L (8-16); CALCIUM 8.2 mg/dL (8.4-10.2); CREATININE, SERUM 3.37 mg/dL (0.72-1.25); MAGNESIUM 1.9 MG/DL (1.3-2.1); PHOSPHORUS 3.1 MG/DL (2.3-4.7); POTASSIUM 3.7 mmol/L (3.5-5.1)
--- NOTE | 2019-08-19 16:48 | NUR ---
PT IN [facility] RECEIVED CALL FROM MOTOR EQUIPMENT SERGEANT, CRITICAL LAB OF GLUCOSE OF 48, RECHECKED BS AT 72 AT THIS TIME 1655 1/2 AMP OF D5 GIVEN AT THIS TIME, PT REMAINS AWAKE AND RESPONSIVE WILL RECHECK. INSULIN PUT ON HOLD
--- NOTE | 2019-08-19 17:25 | NUR ---
BLOOD SUGAR RECHECK AT 87, WILL CONTINUE TO MONITOR CLOSELY
--- NOTE | 2019-08-19 17:31 | Consultation ---
DATE OF CONSULTATION: 08/19/2019 REASON FOR CONSULTATION: To evaluate and assist in treating the patient with suspected sepsis with shock with concern for cholecystitis. Information is gathered from the current medical record. I interviewed the patient at the bedside. HISTORY OF PRESENT ILLNESS: He is an 79-year-old male with diabetes mellitus, hypertension, and coronary artery disease, who reports previous coronary artery bypass surgery. There is also note on the chart indicating that he has had AICD placement in the past. The patient reports that he came to the hospital because of an acute onset of shortness of breath. The admission H and P indicated that the patient reported diarrhea and abdominal pain. Apparently, he came in on the day that the symptoms started. At the time of presentation, he was found with a temperature of 97.1 degrees Fahrenheit. Subsequently, temperatures were up to 99.9 degrees Fahrenheit. His pulse rate at presentation was up to 98. His respiratory rate was 18. His blood pressure at presentation was 92/78. His blood pressure was as low as 74/41. He has required vasopressor support. He had a CBC done on presentation that showed a white count of 13.6. His white count today is up to 18.3. His serum creatinine was 2.4 at presentation. He admits to a history of chronic kidney disease. His liver function tests at presentation show an AST of 39, which has subsequently increased to 250. His ALT 26 at presentation has increased to 124. Alkaline phosphatase has remained normal. Total bilirubin 1.2 at presentation is 0.6 currently. The patient had blood cultures drawn on August 18 and so far show no growth. A chest x-ray on August 18 showed cardiomegaly and mild pulmonary edema. A CT scan of his chest was reported with an ill-defined radiopaque material in the gallbladder, likely representing sludge with gallbladder wall thickening and adjacent fat stranding. Findings have been suspicious for cholecystitis. There was also wall thickening of the gastric antrum and proximal duodenum, raising concern for gastritis or duodenal ulcer. There was extensive atherosclerotic calcification. There was moderate centrilobular emphysema. There were nodular densities in the left upper lobe of indeterminate significance. At the time of this evaluation, the patient is on treatment with clindamycin and Zosyn. PAST MEDICAL HISTORY: His medical history is as reported above. There is a history of congestive heart failure. There is no prior history of liver disease or CVA. SOCIAL HISTORY: He does not smoke or drink. He denies other forms of recreational drug use. FAMILY HISTORY: Positive for diabetes and hypertension. ALLERGIES: HE HAS NO KNOWN ALLERGIES. MEDICATIONS: As mentioned earlier, he is on clindamycin and Zosyn. The rest of his medications are per the medication administration report. REVIEW OF SYSTEMS: The patient is alert. His sensorium is clear. He reports that he had shortness of breath on the day of admission without a significant cough. No sore throat. No headache or neck stiffness. No chest pain. He had abdominal pain per report and diarrhea. No frequency or dysuria. He reports that recently he was provided new shoe inserts and believes that his right 5th toe was rubbing against the inserts resulting in ulceration. PHYSICAL EXAMINATION: GENERAL: He is an adult male. He is alert, responsive, and coherent. He appears nontoxic and is in no acute distress. VITAL SIGNS: Maximum temperature recorded since presentation is 99.9 degrees Fahrenheit. His most recent temperature is 98.2. He is hemodynamically stable. HEENT: He has no gross pallor. There is no obvious icterus. No oropharyngeal lesions. NECK: Supple. CHEST: Symmetric. There are sparse crackles on the lung bases. HEART: Sounds are regular without a significant murmur. ABDOMEN: Full, soft. No significant tenderness elicited with my palpation. The patient tells me that he was examined earlier and on deep palpation, he had pain in the epigastric area. Bowel sounds are normal. EXTREMITIES: There is no acute erythema of his extremities. There is superficial ulceration of his right 5th toe without warmth or tenderness. Dorsalis pedis pulse is difficult to appreciate bilaterally. LABORATORY DATA: His creatinine currently 3.2. His CK 1393, CK-MB 141, troponin 139, and lactic acid 2.1. Blood glucose up to 328. Liver function tests as previously reported. Blood cultures have been negative. Urine culture from August [address] also [address] scan of the chest is as previously reported. CT of the abdomen seen report. IMPRESSION: This 79-year-old male presented with signs and symptoms consistent with sepsis. The source is unclear except for abnormal liver function test and CT scan findings suggestive of possible cholecystitis. I suggest we discontinue clindamycin. He gives a history of chronic kidney disease and has abnormal renal function. I suggest we discontinue clindamycin. Continue treatment with Zosyn adjusted for renal function. The patient is scheduled for a HIDA scan. He needs Surgery and GI evaluation and followup. I have discussed the findings and he likely has severe peripheral arterial disease. There is a superficial ulceration of his right 5th toe, which at this point does not appear to be infected. Consider Vascular and Podiatry evaluation and followup. I have discussed the findings and plans with the patient at the bedside. His grandson was at the bedside. Nursing staff was in the room during the entire history taking and examination. I would discuss the patient with the primary physician, whom I thank for the consult and the opportunity to participate in the patient's care. It should be noted that the patient is in severe sepsis with shock and multiorgan dysfunction including worsening of his renal function. Total care time 45 minutes. MD LUC Hale/MODChante /[id number]
[2019-08-19 19:03] LABS: EOSINOPHILS % (MANUAL) 1 % (0-7); LYMPHOCYTES % (MANUAL) 14 % (19-48); MONOCYTES % (MANUAL) 12 % (3.4-9.0); NEUTROPHILS % (MANUAL) 65 % (40-74); PLATELET ESTIMATE ADEQUATE; PLATELET MORPHOLOGY COMMENT NORMAL; RBC MORPHOLOGY COMMENT NORMAL
--- NOTE | 2019-08-19 21:00 | Diagnostic Imaging Report ---
Hepatobiliary Scan with Gallbladder Ejection Fraction Clinical information: 79F with abdominal pain x 3 days Technique: Following intravenous administration of 5.8 millicuries of Tc-99m mebrofenin, dynamic images of the abdomen in the anterior projection were obtained through 60 minutes. Sincalide (CCK analog) 1.5 micrograms was administered intravenously over 30 minutes with additional imaging for determination of gallbladder ejection fraction. Discussion: Perfusion of the liver is normal. Extraction of tracer by the liver parenchyma is normal. Tracer appears promptly within the biliary tract. The gallbladder begins to fill by 10 minutes post injection of tracer and fills adequately. Tracer is seen in the small bowel by 12 minutes. The gallbladder ejection fraction with sincalide is 12% (normal greater than 40%). Impression: 1. Filling of the gallbladder excludes acute cystic duct obstruction/acute cholecystitis. 2. 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 Signed by: Dr. Vicki Solo M.D. on 08/19/2019 8:56 PM
[2019-08-19] MEDS: PIPERACILLIN/TAZO 2.25 GM 50 ML IV SCH (22:14)
[2019-08-20] VITALS (54 sets, daily range): BP systolic 79–110; BP diastolic 45–90
[2019-08-20 02:40] LABS: ANION GAP 14.7 mmol/L (8-16); POTASSIUM 3.7 mmol/L (3.5-5.1)
[2019-08-20 02:41] LABS: CREATININE, SERUM 3.35 mg/dL (0.72-1.25)
[2019-08-20 04:34] LABS: BASOPHILS # (AUTO) 0.1 (0.0-0.1); BASOPHILS % 0.3 % (0.0-1.0); HEMATOCRIT 35.3 % (38.2-49.6); HEMOGLOBIN 11.8 g/dL (14.0-18.0); LYMPHOCYTES # (AUTO) 1.5 (1.0-3.2); LYMPHOCYTES % 9.1 % (18.0-39.1); MEAN CORPUSCULAR HEMOGLOBIN 31.3 pg (28-32); MEAN CORPUSCULAR HGB CONC 33.4 g/dL (31-35); MEAN CORPUSCULAR VOLUME 93.6 fL (81-99); MONOCYTES # (AUTO) 1.5 (0.2-0.8); MONOCYTES % 9.1 % (4.4-11.3); NEUTROPHILS % 81.1 % (38.7-80.0); PLATELET COUNT 134 x10e3/uL (140-360); RED BLOOD COUNT 3.77 x10e6/uL (4.3-5.7); RED CELL DISTRIBUTION WIDTH 12.9 % (11.7-14.4)
[2019-08-20 04:54] LABS: ALBUMIN 2.7 g/dL (3.5-5.0); ALBUMIN/GLOBULIN RATIO 0.9 (0.8-2.0); ANION GAP 14.6 mmol/L (8-16); CALCIUM 8.2 mg/dL (8.4-10.2); CREATININE, SERUM 3.14 mg/dL (0.72-1.25); MAGNESIUM 1.8 MG/DL (1.3-2.1); PHOSPHORUS 3.2 MG/DL (2.3-4.7); POTASSIUM 3.6 mmol/L (3.5-5.1)
[2019-08-20 04:58] LABS: AMYLASE 22 U/L (25-125); LIPASE 31 U/L (8-78)
[2019-08-20 05:27] LABS: FREE THYROXINE INDEX 1.9267 (1.4-3.8); THYROID STIMULATING HORMONE 0.369 uIU/mL (0.350-4.940)
[2019-08-20 06:05] LABS: CREATINE KINASE MB 31.5 ng/mL (0-5.0)
[2019-08-20] MEDS: PIPERACILLIN/TAZO 2.25 GM 50 ML IV SCH ×3 (06:13→22:00)
--- NOTE | 2019-08-20 07:01 | NUR ---
IM- progress note O/N no change ROS: unreliable v/s; revd PE BIPAP mask in place tired appearing anicteric ns1s2 reduced BS soft; nd; mild tenderness no e/t awake; skin dry flat affect labs/meds revd A/P: [id number] Septic shock Diarrhea DEON/AMS Acute resp falure Acute cholecystitis NSTEMI DM2 PLAN IV abx; IVF; Heparin gtt Sx consult; Pulm consult; Cardio consult hba1c/lipids C.diff testing Insulin gtt PPI on AC Dispo: f/u further testing; cct>35mins 08/19/19 cont IV abx; give IVF with bicarbs; nephr consult; Hba1c 6.5; monitor closely; recheck labs later today; cct>35mins. 11-20 gallbladder dyskinesia 12% EF, gallbladder sludge; leukocytosis improving; cont antibiotics- IV zosyn; all cx negative to date; Renal fn poor; Updated pt. Magalys Odonnell MD, PhD.
[2019-08-20] MEDS: MIDODRINE HCL 5 MG TABLET PO SCH ×3 (08:20→17:45)
[2019-08-20] MEDS: ASPIRIN 81 MG ENTERIC COATED PO SCH (08:20)
--- NOTE | 2019-08-20 08:50 | Diagnostic Imaging Report ---
EXAMINATION: CHEST SINGLE (PORTABLE) INDICATION: Shortness of breath COMPARISON: Chest radiograph of 08/18/2019 FINDINGS: LINES/TUBES:Right IJ central venous catheter terminates in the superior vena cava. Left chest AICD unchanged. EKG leads overlie the chest. LUNGS:The lungs are well-inflated. There is perihilar fullness and indistinctness of the pulmonary vasculature. PLEURA:No pleural effusion or pneumothorax. MEDIASTINUM:Cardiomediastinal silhouette is stably enlarged. Atherosclerotic calcifications of the thoracic aorta. BONES/SOFT TISSUES:No acute osseous injury. ABDOMEN:No free air under the diaphragm. IMPRESSION: No significant interval change. Signed by: Luis Solano MD on 08/20/2019 8:47 AM
[2019-08-20] MEDS: PANTOPRAZOLE 40 MG 10ML VIAL IV SCH ×2 (09:30→17:45)
[2019-08-20] MEDS: SODIUM BICARBONATE 8.4% 75 ML in SODIUM CHLORIDE 0.45% 1,000 ML IV SCH (09:45)
[2019-08-20] MEDS: ALBUMIN 25% 12.5GM 0.25 GM/ML BTL IV SCH ×3 (12:00→17:46)
--- NOTE | 2019-08-20 12:09 | Progress Note ---
DATE: 08/20/2019 SUBJECTIVE: Followed for acute kidney injury on chronic kidney disease, stage 4. The patient's kidney function is improving. He has had better perfusion. He is off one pressor. He is only on low-dose of dopamine. He has had improved urine output. He is not overly short of breath. Has mild degree of lower extremity edema. His metabolic acidosis is improved also. He is still being evaluated for possible gallbladder surgery. Also, being evaluated by Cardiology for possible intra-aortic balloon pump. No current fever. No chills. No nausea, no vomiting. OBJECTIVE: VITAL SIGNS: Have been noted, blood pressures are 103/58 last blood pressure, 98 pulse, respirations 10 to 18, and 2 L nasal cannula, 99% O2 sats. LUNGS: Minimal rales at the bases bilaterally. CARDIOVASCULAR: S1, S2. No rub. ABDOMEN: Soft, nontender. EXTREMITIES: 1+ edema. LABORATORY DATA: H and H are 11.8 and 35.3. Chemistries; sodium 137, potassium 3.6, chloride 106, bicarb 20, BUN 37, and creatinine 3.1, calcium 8.2, phosphorus 3.2, and magnesium is 1.8, ionized calcium 1.1. IMPRESSION AND PLAN: 1. Acute kidney injury on chronic kidney disease, stage 4. Continues to improve from acute kidney injury with better renal perfusion state. Decrease bicarb drip to 50 mL/hour. Eventually can discontinue bicarb drip, especially since the patient may get fluid overloaded with low ejection fraction. Repeat labs in the morning. Make further recommendations. No current urgent need for dialysis. 1. Hypertension/hypotension, likely secondary to his infective state. Continue low-dose midodrine. Continue correction of metabolic acidosis. We will continue to monitor closely, being weaned off pressors. 2. Oliguria, has improved, currently good urine output over the last couple of hours. No current need for any dialysis. If required may give the patient some periodic doses of Lasix to allow for improved urine output as well as to prevent fluid overload. 3. Metabolic acidosis. Continue bicarb drip. Decrease rate to 50 mL/hour, probably can eventually stop it in the next couple of days. Scar Dillon MD /MODL /[id number]
[2019-08-20] MEDS ORDERED: INSULIN REGULAR, HUMAN 3ML VL 100 UNIT in SODIUM CHLORIDE 0.45% 100 ML 100 ML IV SCH ×4 (12:30)
--- NOTE | 2019-08-20 13:54 | Progress Note ---
DATE: 08/20/2019 Cardiology Progress Note SUBJECTIVE: Denies any chest pain. Feels slightly more short of breath today, now on dopamine of 3, off Levophed and phenylephrine. OBJECTIVE: VITAL SIGNS: Temperature 98.6, heart rate 110, paced rhythm, respiratory rate 18, and blood pressure 103/58. GENERAL: In no acute distress. Alert. NECK: JVD to lower third of neck. CHEST: Clear to auscultation bilaterally. CARDIOVASCULAR: Regular rate and rhythm. Normal S1 and S2. Systolic ejection murmur 2/6. No S3 or S4. ABDOMEN: Soft. Bowel sounds positive. EXTREMITIES: Trace edema. Warm distal extremities. CARDIOVASCULAR MEDICATIONS: Reviewed. Aspirin 81 mg daily, heparin IV drip, dopamine drip, and midodrine 5 mg t.i.d. STUDIES: Reviewed. White blood cells 15.9, hemoglobin 11.8, and platelets 134. PT 61. Troponin I trending down now 39.4. CK trending down now 509 and CK-MB trending down now 31.5. Sodium 137, potassium 3.6, chloride 106, bicarbonate 20, BUN 37, creatinine 3.1, trending down from 3.3 yesterday. Calcium 8.2. AST 207 also trending down, ALT 161, increasing still, alkaline phosphatase 33. Total protein 5.6, albumin 2.9, amylase 22, and lipase 31. TSH 0.36. ASSESSMENT: 1. Severe sepsis with septic shock. 2. Extensive myocardial infarction in the setting of hypotension requiring 3 pressors (non-ST elevation myocardial infarction). 3. Profound shock, now improving, better off phenylephrine, vasopressin, and Levophed on low-dose dopamine and inotropic support. 4. Severe kajhb-wv-kisghih systolic heart failure with LVEF 25% to 30% and restrictive LV filling. 5. History of hypertension and dyslipidemia. 6. Coronary artery disease with history of aortocoronary bypass. 7. Lpygw-kh-mlovyba renal failure. RECOMMENDATIONS: 1. Repeat chest x-ray, as the patient has been on bicarb drip to monitor closely for development of pulmonary edema given oliguric renal failure and underlying heart failure. 2. Inotropic and pressor support to maintain a MAP of 65 to 75. 3. Aspirin. 4. IV heparin for now. 5. Continue to trend LFTs. 6. Daily cardiac biomarker, CK-MB. 7. Gabe has so far declined intra-aortic balloon pump placement. 8. Given acute renal failure at this point, medical management without invasive angiogram for CAD advisable. Overall, prognosis remains guarded. MD ANKIT Silva/MODL /[id number]
[2019-08-20] MEDS: NOREPINEPHRINE 8 MG/D5W 250 ML 250 ML IV SCH (14:02)
--- NOTE | 2019-08-20 20:55 | NUR ---
PT REPORTS SOB THAT HAS BEEN PERSISTENT ALL DAY, DR. LOPES NOTIFIED DURING DAY TIME, NO NEW ORDERS, AM CXR CLEAR. DR. DUFFY PAGED AT SHIFT CHANGE BY DAY RN PORTIA, NEW ORDER FOR VAPOTHERM, PT UNABLE TO TOLERATE. ATTEMPTED BIPAP-PT UNABLE TO TOLREATE. PAGE TO DR. MALLOY, AWAITING CALL BACK.
[2019-08-20] MEDS: HEPARIN 25,000 UNIT 25,000 UNIT in DEXTROSE 5% 250ML 250 ML IV SCH (23:13)
[2019-08-21] VITALS (42 sets, daily range): BP systolic 79–130; BP diastolic 41–90
[2019-08-21] MEDS: ALBUMIN 25% 12.5GM 0.25 GM/ML BTL IV SCH ×2 (01:37→06:36)
--- NOTE | 2019-08-21 01:47 | NUR ---
ENDOCRINE COVERAGE FOR DR MEDINA DATE : 08/20/2019 SUBJECTIVE: Pt ate 50% of diet Liquid diet / clears ordered Yesterday he didnt eat much at all insulin drip still on, now usually 0-2 u/hr. glucose much better REVIEW OF SYSTEMS: Cannot get, as he is intubated. PHYSICAL EXAMINATION: VITAL SIGNS: Noted and reviewed per the chart record GENERAL: talking HEENT: Normocephalic. CARDIAC: S1 and S2. ABDOMEN: Soft. LABORATORY DATA: Creatinine 3.35. Hemoglobin A1c 6.5. IMPRESSION AND PLAN: 1. Diabetes with complications. 2. Non-ST elevation myocardial infarction. 3. Shock, septic/cardiac 4. Possible cholecystitis versus other infection. 5. Kidney failure, acute. 6. Dklpz-bs-zsxjkwb systolic heart failure, 25% to 30% LVEF. HbA1c 6.5% Adjust insulin drip downwards. But do not discontinue insulin drip yet-- this is one of the higher yield situations for tighter glucose control. Follow as diet increases No large procedures planned as of now, per nursing Patient takes about 30 u/ insulin per day at baseline, he says Confining to the glycemic control, coverage for Dr. Medina Thank you very much for this consult, Dr. Odonnell. Call for questions.
[2019-08-21 04:22] LABS: BASOPHILS % 0.3 % (0.0-1.0); EOSINOPHILS % 0.1 % (0.0-6.0); HEMATOCRIT 34.2 % (38.2-49.6); HEMOGLOBIN 11.4 g/dL (14.0-18.0); LYMPHOCYTES # (AUTO) 1.4 (1.0-3.2); LYMPHOCYTES % 10.3 % (18.0-39.1); MEAN CORPUSCULAR HEMOGLOBIN 31.2 pg (28-32); MEAN CORPUSCULAR HGB CONC 33.3 g/dL (31-35); MEAN CORPUSCULAR VOLUME 93.7 fL (81-99); MONOCYTES # (AUTO) 1.5 (0.2-0.8); MONOCYTES % 11.2 % (4.4-11.3); NEUTROPHILS # (AUTO) 10.7 (2.1-6.9); NEUTROPHILS % 77.6 % (38.7-80.0); PLATELET COUNT 146 x10e3/uL (140-360); RED BLOOD COUNT 3.65 x10e6/uL (4.3-5.7); RED CELL DISTRIBUTION WIDTH 13.1 % (11.7-14.4)
[2019-08-21 04:40] LABS: ALBUMIN 3.2 g/dL (3.5-5.0); ALBUMIN/GLOBULIN RATIO 1.3 (0.8-2.0); ANION GAP 14.8 mmol/L (8-16); CALCIUM 8.7 mg/dL (8.4-10.2); CREATININE, SERUM 2.81 mg/dL (0.72-1.25); PHOSPHORUS 3.1 MG/DL (2.3-4.7); POTASSIUM 3.8 mmol/L (3.5-5.1)
[2019-08-21] MEDS ORDERED: SODIUM BICARBONATE 8.4% 75 ML in SODIUM CHLORIDE 0.45% 1,000 ML IV SCH (05:00)
[2019-08-21 05:09] LABS: CREATINE KINASE MB 11.1 ng/mL (0-5.0)
[2019-08-21 05:26] LABS: ABG PH 7.36 (7.31-7.41)
[2019-08-21 05:27] LABS: ABG PCO2 37 mmHg (41-51)
[2019-08-21 05:29] LABS: ABG PO2 28 mmHg (80-105)
[2019-08-21 05:30] LABS: ABG HCO3 21 mmol/L (23-28)
[2019-08-21] MEDS: PIPERACILLIN/TAZO 2.25 GM 50 ML IV SCH ×3 (06:36→21:33)
--- NOTE | 2019-08-21 06:45 | NUR ---
IM- progress note O/N no change ROS: unreliable v/s; revd PE BIPAP mask in place tired appearing anicteric ns1s2 reduced BS soft; nd; mild tenderness no e/t awake; skin dry flat affect labs/meds revd A/P: 79yoyoM Septic shock Diarrhea DEON/AMS Acute resp falure Acute cholecystitis NSTEMI DM2 PLAN IV abx; IVF; Heparin gtt Sx consult; Pulm consult; Cardio consult hba1c/lipids C.diff testing Insulin gtt PPI on AC Dispo: f/u further testing; cct>35mins 08/19/19 cont IV abx; give IVF with bicarbs; nephr consult; Hba1c 6.5; monitor closely; recheck labs later today; cct>35mins. 11 gallbladder dyskinesia 12% EF, gallbladder sludge; leukocytosis improving; cont antibiotics- IV zosyn; all cx negative to date; Renal fn poor; Updated pt. 08/21 Afebrile; renal fn poor; Transaminases elevated; BP remains low; all cx negative; Period of hypoxia, ABG shows Hypoxemia- use HiFlo. F/U CXR. Magalys Odonnell MD, PhD.
--- NOTE | 2019-08-21 06:59 | NUR ---
Dr. Odonnell at bedside, notified him that patient refused Bipap & vapotherm per Dr. Acosta's order and remained on 4L NC until 0500. At this time, patient c/o SOB, feeling fatigue and lethargic but arousable- AAOx4. ABG performed and CXR. Pt placed on hiflow NC. Dr. Odonnell wants to keep him on hiflow NC. Pt states he would like to discuss his options with Dr. Tinsley regarding balloon pump.
[2019-08-21] MEDS: INSULIN REGULAR, HUMAN 3ML VL 100 UNIT in SODIUM CHLORIDE 0.9% 99 ML IV SCH ×2 (07:00)
[2019-08-21 08:47] LABS: ABG HCO3 15 mmol/L (23-28); ABG PCO2 25 mmHg (41-51); ABG PO2 102 mmHg (80-105)
--- NOTE | 2019-08-21 08:56 | Diagnostic Imaging Report ---
EXAMINATION: CHEST SINGLE (PORTABLE) INDICATION: Shortness of breath COMPARISON: Chest radiograph of 08/20/2019 FINDINGS: LINES/TUBES:Left chest AICD unchanged. Right IJ nontunneled central venous catheter terminates in the superior vena cava. EKG leads overlie the chest. LUNGS:The lungs are well-inflated. There is perihilar fullness and indistinctness of the pulmonary vasculature. PLEURA:No pleural effusion or pneumothorax. MEDIASTINUM:Cardiomediastinal silhouette is stably enlarged. Atherosclerotic calcifications of the thoracic aorta. BONES/SOFT TISSUES:No acute osseous injury. ABDOMEN:No free air under the diaphragm. IMPRESSION: Mild cardiomegaly and mild edema. Signed by: Luis Solano MD on 08/21/2019 8:53 AM
[2019-08-21] MEDS: MIDODRINE HCL 5 MG TABLET PO SCH ×3 (10:22→17:30)
[2019-08-21] MEDS: PANTOPRAZOLE 40 MG 10ML VIAL IV SCH ×2 (10:22→17:30)
[2019-08-21] MEDS: ASPIRIN 81 MG ENTERIC COATED PO SCH (10:22)
[2019-08-21] MEDS: FUROSEMIDE INJ 10 MG/ML 4 ML VIAL IV SCH ×2 (10:22→21:28)
--- NOTE | 2019-08-21 10:25 | Progress Note ---
DATE: 08/20/2019 SUBJECTIVE: The patient is resting in bed. He is in no acute distress. He intermittently gets dyspneic. No complaint of chest pain. No abdominal pain currently. No report of nausea, vomiting, or diarrhea. OBJECTIVE: VITAL SIGNS: In the previous 24 hours, he had temperatures up to 99.5 degrees Fahrenheit. He has required vasopressor support. HEENT: There is no gross pallor. No obvious icterus. No oropharyngeal lesions. NECK: Supple. CHEST: Symmetric. Lungs sound clear. HEART: Sounds are regular. There is no new murmur. ABDOMEN: Soft. Bowel sounds are present. EXTREMITIES: There is no acute erythema of his extremities. LABORATORY DATA: White count is 15.9 down from 19.5, hemoglobin 11.8, platelet count 134. Serum creatinine 3.1. No significant positive cultures. IMPRESSION: He is on treatment for sepsis with shock. He probably has cholecystitis. He likely has peripheral arterial disease. There is a superficial ulcer of his right 5th toe without evidence of acute infection. I suggest continue current management. Monitor temperature, CBC, renal function. Continue all other supportive care. MD LUC Hale/KETTY /[id number]
--- NOTE | 2019-08-21 10:30 | Progress Note ---
DATE: 08/21/2019 SUBJECTIVE: The patient is resting in bed. He continues to experience episodes of acute dyspnea. He is currently comfortable on oxygen by nasal cannula. No report of nausea, vomiting, or diarrhea. He has no pain complaints. OBJECTIVE: VITAL SIGNS: Maximum temperature in the past 24 hours was up to 98.8 degrees Fahrenheit. He is hemodynamically stable. He has required vasopressor support. HEENT: He has no gross pallor. There is no obvious icterus. No oropharyngeal lesions. NECK: Supple. CHEST: Symmetric. Breath sounds are decreased at lung bases. HEART: Sounds are regular without a new murmur. ABDOMEN: The abdomen is full, soft, nontender with normal bowel sounds. EXTREMITIES: No acute erythema of the extremities. LABORATORY DATA: Creatinine is 2.8. White count is 13.7 down from 15.9, hemoglobin 11.4, and platelet count 146. There are no new positive culture reports. He had a HIDA scan on August 19, which showed no acute cystic duct obstruction/cholecystitis. There is decreased gallbladder ejection fraction to 12% suggestive of chronic cholecystitis or gallbladder dyskinesia. IMPRESSION: He is on empiric treatment for sepsis with shock. There is evidence of chronic cholecystitis and/or gallbladder dyskinesia. His white count is trending down. He is in chronic kidney failure. He likely has peripheral arterial disease, a superficial ulceration of his right fifth toe. I suggest continue same management. Continue to monitor clinical response to treatment. MD LUC Hale/MODL /[id number]
--- NOTE | 2019-08-21 11:15 | Progress Note ---
DATE: 08/21/2019 Renal Progress Note SUBJECTIVE: Followed for acute kidney injury on chronic kidney disease, stage 4. Kidney function continues to improve with creatinine down to 2.8. The patient's blood pressure has improved. The patient is also nonoliguric, now starting to get some mild interstitial edema on the chest x-ray. He is nonoliguric. Some shortness of breath. No nausea, no vomiting. OBJECTIVE: VITAL SIGNS: Have been noted. Blood pressure is high 90s to low 100s over 60s, and 114 pulse. LUNGS: Minimal rales at bases bilaterally. CARDIOVASCULAR: S1, S2. No rub. ABDOMEN: Soft. Positive bowel sounds. EXTREMITIES: 1+ edema. LABORATORY DATA: Have been reviewed. H and H are 11.4 and 34.2. Potassium is 3.8, BUN 38, creatinine 2.8. IMPRESSION AND PLAN: 1. Acute kidney injury on chronic kidney disease stage 4. We will discontinue IV fluids to avoid fluid overload. We will place the patient on IV Lasix 40 mg q.12 hours. 2. Congestive heart failure exacerbation, mild degree of interstitial edema on chest x-ray. We will put the patient on IV Lasix and continue other care per Cardiology recommendations. 3. Hypotension. Continue low-dose midodrine. The patient is slowly being weaned off dopamine, IV albumin has also helped as well. 4. Metabolic acidosis has resolved now. Discontinue bicarb drip. MD ASHLEY José/MODL /[id number]
[2019-08-21] MEDS: HEPARIN 25,000 UNIT 25,000 UNIT in DEXTROSE 5% 250ML 250 ML IV SCH ×2 (15:05→22:45)
--- NOTE | 2019-08-21 16:02 | NUR ---
ENDOCRINE COVERAGE FOR DR MEDINA DATE : 08/21/2019 SUBJECTIVE: Pt ate 100% of diet patient remains on clears diet insulin drip, often 1 unit / hr remains in the icu in critical condition REVIEW OF SYSTEMS: no headaches PHYSICAL EXAMINATION: VITAL SIGNS: Noted and reviewed per the chart record GENERAL: talking HEENT: Normocephalic. CARDIAC: S1 and S2. ABDOMEN: Soft. LABORATORY DATA: creatinine 2.81, hco3 22 IMPRESSION AND PLAN: 1. Diabetes with complications. 2. Non-ST elevation myocardial infarction. 3. Shock, septic/cardiac 4. Possible cholecystitis versus other infection. 5. Kidney failure, acute. 6. Sasva-fz-pmwpsep systolic heart failure, 25% to 30% LVEF. HbA1c 6.5% Continue insulin drip Patient on clears diet, possible diet upgrade soon Patient remains in critical condition at this time Confining to the glycemic control, coverage for Dr. Medina Thank you very much for this consult, Dr. Odonnell. Call for questions.
[2019-08-21] MEDS: NOREPINEPHRINE 8 MG/D5W 250 ML 250 ML IV SCH (17:15)
--- NOTE | 2019-08-21 20:31 | NUR ---
renal md notified of uop today of 200ml from 7a-7p. pt sat in chair today for several hours after ambulating to toilet. pt was sob after extertion which resolved with several minutes of rest. weaned off dopamine. continue heparin gtt and insulin gtt. family at bedside.
--- NOTE | 2019-08-21 20:59 | Progress Note ---
DATE: 08/21/2019 Cardiology Progress note SUBJECTIVE: Denies any chest pain; shortness of breath, improving. OBJECTIVE: VITAL SIGNS: Temperature 97.5, heart rate 123, paced rhythm, tachycardic on telemetry, blood pressure 97/57 with a MAP of 70 at dopamine 1 mcg/kg/min, overall decreased compared to yesterday dosing. Respiratory rate 24, O2 saturation 99%. BMI 25.1 on nasal cannula. GENERAL: In no acute distress. Alert. NECK: JVD to lower 3rd of neck. CHEST: Decreased breath sounds in bilateral bases. CARDIOVASCULAR: Regular rate and rhythm. Normal S1, S2. Systolic ejection murmur. Tachycardic. ABDOMEN: Soft, nontender. Bowel sounds positive. EXTREMITIES: Trace edema. CARDIOVASCULAR MEDICATIONS: Have been reviewed on Zosyn, dopamine, furosemide 40 mg IV every 12 hours, aspirin 81 mg daily, off phenylephrine, off vasopressin, off Levophed, on midodrine 5 mg t.i.d. STUDIES: Reviewed. LABORATORY DATA: White blood cells 13.7, hemoglobin 11.4 and platelets 146. PTT 34 on heparin IV drip, dose being adjusted per protocol. Sodium 139, potassium 3.8, chloride 106, bicarbonate 22, BUN 38, creatinine 2.8, glucose 120, calcium 8.7, magnesium 2, total bilirubin 1, AST 245, ALT 325, alkaline phosphatase 33. CK 148, CK-MB 11.1, troponin I 24.9 that is from 08/21/2019 trending down. Total protein 5.7, albumin 3.2. ASSESSMENT: 1. Severe sepsis with septic shock, now with improving inotropic requirements and off pressor support. 2. Acute on chronic severe systolic heart failure. 3. Non-ST segment elevation myocardial infarction. 4. LVEF 25 to 30% with restrictive LV filling on echo. 5. Hypertension and dyslipidemia. 6. History of coronary artery disease with aortocoronary bypass. 7. Acute on chronic renal failure with improving creatinine now 2.8 down from 3.1 yesterday. 8. Abnormal LFTs, improving. PLAN/RECOMMENDATIONS: 1. Diuretics. 2. Continue aspirin. 3. Continue IV heparin. 4. Continue to trend LFTs. Hold statin for now given abnormal LFTs. 5. Daily CK-MB. 6. Continue to wean off inotropic support as tolerated. 7. Appreciate ID expertise regarding antibiotic care. MD ANKIT Silva/KETTY /[id number]
--- NOTE | 2019-08-21 21:37 | NUR ---
PTT 60.7 - therapeutic, no changes made to drip rate
[2019-08-22] VITALS (25 sets, daily range): BP systolic 89–137; BP diastolic 33–93
--- NOTE | 2019-08-22 03:00 | NUR ---
Bedside glucose 75 - insulin gtt turned off
--- NOTE | 2019-08-22 04:30 | NUR ---
bedside glucose 90 - insulin gtt remains off
[2019-08-22 05:00] LABS: ANION GAP 16.8 mmol/L (8-16); CALCIUM 9.4 mg/dL (8.4-10.2); CREATININE, SERUM 3.11 mg/dL (0.72-1.25); PHOSPHORUS 3.6 MG/DL (2.3-4.7); POTASSIUM 3.8 mmol/L (3.5-5.1)
--- NOTE | 2019-08-22 05:18 | NUR ---
PTT 33.1 - Heparin gtt increased to 10 ml/hr per protocol
[2019-08-22 05:35] LABS: CREATINE KINASE MB 4.5 ng/mL (0-5.0)
[2019-08-22] MEDS: PIPERACILLIN/TAZO 2.25 GM 50 ML IV SCH ×3 (06:19→20:33)
[2019-08-22] MEDS: INSULIN REGULAR, HUMAN 3ML VL 100 UNIT in SODIUM CHLORIDE 0.9% 99 ML IV SCH ×2 (06:21)
[2019-08-22] MEDS: MIDODRINE HCL 5 MG TABLET PO SCH ×3 (07:59→17:57)
--- NOTE | 2019-08-22 08:38 | Diagnostic Imaging Report ---
Examination: Single AP view of the chest. COMPARISON: 08/21/2019 INDICATION: Dyspnea DISCUSSION: Left subclavian approach implantable cardiac device and right internal jugular approach central venous catheter are unchanged in position. Lungs remain well-inflated with worsening retrocardiac airspace opacity. Otherwise stable cardiomediastinal contour and pulmonary venous congestion No acute osseous abnormality. IMPRESSION: Unchanged enlargement of the cardiac silhouette with pulmonary venous congestion. Worsening retrocardiac airspace disease, likely atelectasis, though aspiration is an additional consideration. Signed by: Dr. Dago Grover M.D. on 08/22/2019 8:34 AM
[2019-08-22] MEDS: POTASSIUM CHLORIDE 20 MEQ TAB CR PO SCH (11:24)
[2019-08-22] MEDS: ASPIRIN 81 MG ENTERIC COATED PO SCH (11:24)
[2019-08-22] MEDS: FUROSEMIDE INJ 10 MG/ML 4 ML VIAL IV SCH ×2 (11:24→20:33)
[2019-08-22] MEDS: PANTOPRAZOLE 40 MG 10ML VIAL IV SCH ×2 (11:24→17:57)
--- NOTE | 2019-08-22 11:58 | Progress Note ---
DATE: 08/22/2019 SUBJECTIVE: Gabe denies any chest pain, shortness of breath is slightly better than yesterday. He has no other complaints. We discussed coronary angiography with associated elevated risk for contrast-induced nephropathy, nephropathy, given HERBER on CKD. The patient declines coronary angiogram and does not want to proceed with any invasive testing and only medical management for his heart failure and CAD and understands the recent ID occurred as well as elevated risk for adverse morbidity and mortality related to this. He remains now off inotropes and off pressors. OBJECTIVE: VITAL SIGNS: Temperature 97.4, heart rate 74, respiratory rate 25, blood pressure 107/63, O2 saturation 100%, BMI 25. GENERAL: No acute distress. Alert. NECK: JVD to lower 3rd of neck. CHEST: Decreased breath sounds in bilateral bases. CARDIOVASCULAR: Regular rate and rhythm. Normal S1 and S2. No S3, no S4. No murmurs. ABDOMEN: Soft. Bowel sounds positive. EXTREMITIES: Trace edema. MEDICATIONS: Cardiovascular medication reviewed. 1. Zosyn. 2. Furosemide 40 mg b.i.d. 3. Midodrine 5 mg t.i.d. 4. Aspirin 81 mg daily. STUDIES: Reviewed. Sodium 140, potassium 3.8, chloride 106, bicarbonate 21, BUN 46, creatinine 3.11 increasing, glucose 89. White blood cells 13.7, hemoglobin 11.4, platelets 146. INR 1.1. PT 16.5, PTT 33. AST 245, ALT 325, alkaline phosphatase 33, total bilirubin 1. ASSESSMENT: An 79-year-old man presents with severe sepsis with septic shock, required three pressors and inotropic support, now off pressors and inotropes. 1. Acute on chronic systolic heart failure. 2. History of coronary artery disease with large extensive myocardial infarction on this admission. 3. Acute on chronic renal failure. 4. Severe sepsis with septic shock. PLAN/RECOMMENDATIONS: 1. Recommend continue antibiotic coverage. The patient continues to improve. 2. Agree with diuretics. 3. Aspirin. 4. Heparin. 5. Trend LFTs. Epi Hdz MD AFFouzia/MODL /[id number]
--- NOTE | 2019-08-22 15:04 | Progress Note ---
DATE: 08/22/2019 SUBJECTIVE: The patient is resting in bed. He is in no acute distress. He still looks ill. He is coughing occasionally. No dyspnea at rest. No vomiting. No diarrhea. No overt medication reaction reported. OBJECTIVE: VITAL SIGNS: In the past 24 hours, his maximum temperature was 98.1 degrees Fahrenheit. He has required vasopressor support. Systolic blood pressure is currently 90s. HEENT: He has no gross pallor. No obvious icterus. No oropharyngeal lesions. NECK: Supple. CHEST: Symmetric. LUNGS: Sound fairly clear. HEART: Sounds are regular. There is no new murmur. ABDOMEN: Soft, nontender. Bowel sounds are normal. EXTREMITIES: No acute erythema of his extremities. LABORATORY DATA: His white count is 13.7, highest was 19.5 on August 19. His creatinine is fluctuating, was 2.8 yesterday, 3.1 today. There are no significant positive cultures. His liver function tests as of yesterday were trending up. IMPRESSION: He has chronic cholecystitis with probable biliary hypokinesia/dyskinesia. He is fairly stable from infectious disease point, except for worsening liver function. I suggest to check serum ammonia level. Recheck CBC, liver function tests, and BMP in the morning. Continue other supportive care. I have discussed the patient with Dr. Odonnell. MD LUC Hale/KETTY /[id number]
[2019-08-22] MEDS: NOREPINEPHRINE 8 MG/D5W 250 ML 250 ML IV SCH (17:15)
[2019-08-22] MEDS ORDERED: INSULIN REGULAR, HUMAN 3ML VL 100 UNIT in SODIUM CHLORIDE 0.45% 100 ML 99 ML IV SCH ×4 (19:15)
[2019-08-22] MEDS: HEPARIN 25,000 UNIT 25,000 UNIT in DEXTROSE 5% 250ML 250 ML IV SCH (22:45)
[2019-08-23] VITALS (26 sets, daily range): BP systolic 4–133; BP diastolic 35–98
[2019-08-23 05:25] LABS: BASOPHILS % 0.2 % (0.0-1.0); EOSINOPHILS # (AUTO) 0.1 (0.0-0.4); EOSINOPHILS % 0.3 % (0.0-6.0); HEMATOCRIT 33.7 % (38.2-49.6); HEMOGLOBIN 11.4 g/dL (14.0-18.0); LYMPHOCYTES # (AUTO) 2.2 (1.0-3.2); LYMPHOCYTES % 12.3 % (18.0-39.1); MEAN CORPUSCULAR HEMOGLOBIN 31.7 pg (28-32); MEAN CORPUSCULAR HGB CONC 33.8 g/dL (31-35); MEAN CORPUSCULAR VOLUME 93.6 fL (81-99); MONOCYTES # (AUTO) 2.3 (0.2-0.8); MONOCYTES % 12.8 % (4.4-11.3); NEUTROPHILS % 73.6 % (38.7-80.0); PLATELET COUNT 158 x10e3/uL (140-360); RED CELL DISTRIBUTION WIDTH 13.2 % (11.7-14.4)
[2019-08-23 05:47] LABS: ALBUMIN 3.1 g/dL (3.5-5.0); BILIRUBIN,DIRECT 0.6 mg/dL (0.0-0.5)
[2019-08-23 06:05] LABS: ANION GAP 15.8 mmol/L (8-16); CALCIUM 8.9 mg/dL (8.4-10.2); CREATININE, SERUM 3.84 mg/dL (0.72-1.25); POTASSIUM 3.8 mmol/L (3.5-5.1)
[2019-08-23] MEDS: PIPERACILLIN/TAZO 2.25 GM 50 ML IV SCH ×3 (06:15→21:53)
[2019-08-23] MEDS: MIDODRINE HCL 5 MG TABLET PO SCH ×3 (07:44→16:53)
[2019-08-23] MEDS: FUROSEMIDE INJ 10 MG/ML 4 ML VIAL IV SCH ×2 (08:44→21:13)
[2019-08-23] MEDS: PANTOPRAZOLE 40 MG 10ML VIAL IV SCH ×2 (08:44→16:55)
[2019-08-23] MEDS: POTASSIUM CHLORIDE 20 MEQ TAB CR PO SCH (08:44)
[2019-08-23] MEDS: ASPIRIN 81 MG ENTERIC COATED PO SCH (08:44)
--- NOTE | 2019-08-23 09:04 | NUR ---
IM- progress note O/N no change ROS: unreliable v/s; revd PE BIPAP mask in place tired appearing anicteric ns1s2 reduced BS soft; nd; mild tenderness no e/t awake; skin dry flat affect labs/meds revd A/P: 79yoyoM Septic shock Diarrhea DEON/AMS Acute resp falure Acute cholecystitis NSTEMI DM2 PLAN IV abx; IVF; Heparin gtt Sx consult; Pulm consult; Cardio consult hba1c/lipids C.diff testing Insulin gtt PPI on AC Dispo: f/u further testing; cct>35mins 08/19/19 cont IV abx; give IVF with bicarbs; nephr consult; Hba1c 6.5; monitor closely; recheck labs later today; cct>35mins. 08-20 gallbladder dyskinesia 12% EF, gallbladder sludge; leukocytosis improving; cont antibiotics- IV zosyn; all cx negative to date; Renal fn poor; Updated pt. 08/21 Afebrile; renal fn poor; Transaminases elevated; BP remains low; all cx negative; Period of hypoxia, ABG shows Hypoxemia- use HiFlo. F/U CXR. 08/22 wean pressor; diuresis; will need cardiac ischemic eval; f/u labs; Some confusion; f/u labs; 08/23 F/u CXR Magalys Odonnell MD, PhD.
--- NOTE | 2019-08-23 10:30 | NUR ---
PTT 37.4. Increased heparin to 900 units/hr = 9 ml/hr. PTT at 1630. Addendum: 08/23/19 at 1045 by Lashae Milton RN Heparin was 700 units/ hr, per protocol increased by 200 units/ hr.
--- NOTE | 2019-08-23 11:42 | NUR ---
Nutrition Screen Note RD Recommendation for Physician: Advance diet as tolerated to a cardiac diet Plan of Care: RD following, monitoring for tolerance and adequacy Nutrition reason for involvement: LOS Primary Diagnose(s): Dehydration Syndrome , Sepsis PMH: T2DM, Stage 1 sacral wound, AL, CAD, CABG, AICD, hyperlipidemia Acute on chronic Renal failure, Cholecystitis, systolic heart failure Ht:69 in Wt:170lb BMI:25.1 kg/m2 IBW:160lb +/-10% RD Assessment: (08/23/2019) Chart reviewed. Labs and meds reviewed. Initial encounter with patient. Pt has no known food allergies. Pt with poor to fair po intake on clears. MD plans to advance diet. Pt with diarrhea, but no nausea or vomiting. No difficulty chewing or swallowing. Some edema Current Diet: Clear liquid Malnutrition Evaluation (08/23/2019) The patient does not meet criteria for a specified degree of malnutrition at this time. Will re-evaluate at follow-up as appropriate. Diet Education Needs Assessment: Diet education not indicated. Nutrition Care Level: Moderate Signed: Lit Wayne RD, LD, [facility]
[2019-08-23 13:44] LABS: BAND NEUTROPHILS % (MANUAL) 2 %; LYMPHOCYTES % (MANUAL) 14 % (19-48); MONOCYTES % (MANUAL) 10 % (3.4-9.0)
[2019-08-23 13:45] LABS: NEUTROPHILS % (MANUAL) 74 % (40-74); PLATELET ESTIMATE ADEQUATE; PLATELET MORPHOLOGY COMMENT NORMAL; RBC MORPHOLOGY COMMENT NORMAL
--- NOTE | 2019-08-23 13:53 | Diagnostic Imaging Report ---
EXAMINATION: CHEST SINGLE (PORTABLE) INDICATION: Dyspnea COMPARISON: Chest radiograph of 08/23/2019 FINDINGS: LINES/TUBES:Left chest AICD unchanged. Right IJ nontunneled central venous catheter terminates in the superior vena cava. EKG leads overlie the chest. LUNGS:Bibasilar opacities are unchanged from prior exam due to atelectasis or consolidation. Pulmonary venous congestion is unchanged. PLEURA:Small left pleural effusion is unchanged. MEDIASTINUM:Cardiomediastinal silhouette is enlarged, unchanged. BONES/SOFT TISSUES:No acute osseous injury. ABDOMEN:No free air under the diaphragm. IMPRESSION: 1. Unchanged bibasilar opacities likely due to atelectasis or consolidation. 2. Stable small left pleural effusion. Signed by: Pascual Alcantara MD on 08/23/2019 7:22 AM
--- NOTE | 2019-08-23 16:01 | Progress Note ---
DATE: 08/23/2019 Nephrology Progress Note SUBJECTIVE: The patient admits to breathing better today. Receiving IV Lasix 80 mg b.i.d. now. OBJECTIVE: VITAL SIGNS: Stable. Blood pressure 133/56, pulse 72 per minute, respirations 18 per minute. Urine output has been about 650 in the last 24 hours, about 20 mL/h today. NECK: Without jugular venous distention. CHEST: Auscultation anterolaterally reveals bilateral breath sounds. I do not hear any wheezing or crepitations. CARDIOVASCULAR: Shows normal S1, S2 without rub or gallop. ABDOMEN: Soft, depressible, nondistended. EXTREMITIES: Without pitting edema. NEUROLOGIC: He is alert and oriented x3. LABORATORY DATA: White count is 17.7 thousand, hemoglobin 11.4, normal platelet count. Serum chemistry showed elevated creatinine of 3.84 compared to 3.1 yesterday, BUN 55. Electrolytes are stable. IMPRESSION AND PLAN: 1. Acute kidney injury on chronic kidney disease stage 3, serum creatinine rising over the last couple of days. Continue to monitor closely. 2. Congestive heart failure, will continue with Lasix 80 mg IV b.i.d. and monitor urine output. Subjectively, his breathing is better today. Look for increasing urine output. 3. Hypotension, blood pressure is now stable. On midodrine. MD FLAKO Baires/BISHNUL /[id number]
[2019-08-23] MEDS: INSULIN REGULAR, HUMAN 3ML VL 100 UNIT in SODIUM CHLORIDE 0.9% 99 ML IV SCH ×2 (16:50)
[2019-08-23] MEDS: NOREPINEPHRINE 8 MG/D5W 250 ML 250 ML IV SCH (16:55)
[2019-08-23] MEDS: HEPARIN 25,000 UNIT 25,000 UNIT in DEXTROSE 5% 250ML 250 ML IV SCH (16:59)
[2019-08-23] MEDS ORDERED: HEPARIN 25,000 UNIT DRIP IV ONE (17:03)
--- NOTE | 2019-08-23 17:59 | NUR ---
PTT 40.5. Increase heparin to 1000u/ hr = 10 ml/ hr. PTT at midnight.
--- NOTE | 2019-08-23 18:06 | Progress Note ---
DATE: 08/23/2019 SUBJECTIVE: The patient is awake and responsive. He is in no acute distress. He is not coughing currently. No dyspnea at rest. Has dyspnea with exertion. No report of nausea or vomiting. He has loose stools. OBJECTIVE: VITAL SIGNS: Maximum temperature in the past 24 hours was up to 98.1 degrees Fahrenheit. He has required vasopressor support. HEENT: There is no gross pallor. No obvious icterus. No oropharyngeal lesions. NECK: Supple. CHEST: Symmetric. Breath sounds are coarse in the lung ley. CVS: Heart sounds are regular. There is no new murmur. ABDOMEN: Soft. Bowel sounds are present. EXTREMITIES: No acute erythema of his extremities. There is edema of his upper extremities. LABORATORY DATA: His white count is 7.7, it is fluctuating up from 13.7. On August 19, white count was 19.5. His serum creatinine currently is 3.6. AST is up to 249, ALT is up to 439, alkaline phosphatase is 45. There are no significant positive cultures. IMPRESSION: He has been on treatment for sepsis. He has abnormal liver function tests. HIDA scan shows chronic cholecystitis. He is in renal failure. I suggest continue current management. Monitor temperature, CBC, renal function. Consider repeating CT scan of his abdomen and pelvis for further evaluation. I will discuss the patient with the primary physician. MD LUC Hale/MODL /[id number]
--- NOTE | 2019-08-23 19:00 | NUR ---
Report received. Assumed care. Assessment done. See interventions. c/o feeling like the oxygen is too high. Decreased to 2L NC. Continued to have sats 100%. IV: Heparin @ 1000 units/hr & Insulin @ 1 unit/hr.
--- NOTE | 2019-08-23 23:57 | Progress Note ---
DATE: 08/23/2019 Cardiology Progress Note SUBJECTIVE: Denies any chest pain or shortness of breath. Happy to be seen out of bed today. No complaints. OBJECTIVE: VITAL SIGNS: Temperature 98.2, heart rate 72, respiratory rate 18, blood pressure 132/56, and O2 saturation 100%. GENERAL: In no acute distress. Alert. NECK: No JVD. Sitting upright. CHEST: Clear to auscultation. CARDIOVASCULAR: Regular rate and rhythm. Normal S1 and S2. Systolic ejection murmur. ABDOMEN: Soft and nontender. Bowel sounds positive. EXTREMITIES: Trace edema. CARDIOVASCULAR MEDICATIONS: Reviewed. KCl 20 mEq daily, aspirin 81 mg daily, midodrine 5 mg t.i.d., and furosemide 80 mg every 12 hours. LABORATORY DATA: Studies reviewed. Creatinine 3.8, potassium 3.8, bicarbonate 21, and sodium 138. White blood cells 17.7, hemoglobin 11.4, and platelets 158. INR 1.1. AST 249, ALT 439, alkaline phosphatase 45. ASSESSMENT: An 79-year-old male with CAD, presenting with large non-STEMI in the setting of severe sepsis and profound septic shock, requiring 3 pressors, now status post pressors. Wstza-yw-jodrejn severe systolic heart failure and Dzixp-aj-cybvkck renal failure. RECOMMENDATIONS: Continue current cardiovascular medications and monitor LFTs above the upper limit of normal and as blood pressure allows, consider low-dose beta-heavenly therapy over the next several days. Epi Hdz MD AFFouzia/MODL /[id number]
[2019-08-24] VITALS (24 sets, daily range): BP systolic 82–134; BP diastolic 32–91
--- NOTE | 2019-08-24 00:40 | NUR ---
PTT 97.3. No change in Heparin.
--- NOTE | 2019-08-24 01:53 | NUR ---
Blood sugar 71. Insulin off.
--- NOTE | 2019-08-24 04:15 | NUR ---
IM- progress note O/N no change ROS: unreliable v/s; revd PE BIPAP mask in place tired appearing anicteric ns1s2 reduced BS soft; nd; mild tenderness no e/t awake; skin dry flat affect labs/meds revd A/P: 79yoyo[age] Septic shock Diarrhea DEON/AMS Acute resp falure Acute cholecystitis NSTEMI DM2 PLAN IV abx; IVF; Heparin gtt Sx consult; Pulm consult; Cardio consult hba1c/lipids C.diff testing Insulin gtt PPI on AC Dispo: f/u further testing; cct>35mins 08/19/19 cont IV abx; give IVF with bicarbs; nephr consult; Hba1c 6.5; monitor closely; recheck labs later today; cct>35mins. 08-20 gallbladder dyskinesia 12% EF, gallbladder sludge; leukocytosis improving; cont antibiotics- IV zosyn; all cx negative to date; Renal fn poor; Updated pt. 08/21 Afebrile; renal fn poor; Transaminases elevated; BP remains low; all cx negative; Period of hypoxia, ABG shows Hypoxemia- use HiFlo. F/U CXR. 08/22 wean pressor; diuresis; will need cardiac ischemic eval; f/u labs; Some confusion; f/u labs; 08/23 F/u CXR 08/24 now only 2 L NC O2. More alert; continue care; transition to Med Tele. Magalys Odonnell MD, PhD.
[2019-08-24] MEDS: PIPERACILLIN/TAZO 2.25 GM 50 ML IV SCH ×2 (06:26→14:30)
[2019-08-24 06:49] LABS: BASOPHILS % 0.2 % (0.0-1.0); EOSINOPHILS # (AUTO) 0.1 (0.0-0.4); EOSINOPHILS % 0.6 % (0.0-6.0); HEMOGLOBIN 11.5 g/dL (14.0-18.0); LYMPHOCYTES # (AUTO) 1.3 (1.0-3.2); LYMPHOCYTES % 7.9 % (18.0-39.1); MEAN CORPUSCULAR HGB CONC 33.8 g/dL (31-35); MEAN CORPUSCULAR VOLUME 94.7 fL (81-99); MONOCYTES # (AUTO) 1.8 (0.2-0.8); MONOCYTES % 10.8 % (4.4-11.3); NEUTROPHILS # (AUTO) 13.1 (2.1-6.9); NEUTROPHILS % 79.6 % (38.7-80.0); PLATELET COUNT 168 x10e3/uL (140-360); RED BLOOD COUNT 3.59 x10e6/uL (4.3-5.7); RED CELL DISTRIBUTION WIDTH 13.2 % (11.7-14.4)
[2019-08-24 06:51] LABS: ALBUMIN 3.5 g/dL (3.5-5.0); ALBUMIN/GLOBULIN RATIO 1.1 (0.8-2.0); ANION GAP 22.3 mmol/L (8-16); CALCIUM 9.6 mg/dL (8.4-10.2); CREATININE, SERUM 4.06 mg/dL (0.72-1.25); POTASSIUM 4.3 mmol/L (3.5-5.1)
[2019-08-24 07:13] LABS: INR 1.46; PROTHROMBIN TIME 18.3 seconds (11.9-14.5)
--- NOTE | 2019-08-24 08:02 | NUR ---
PTT 36.8. Increase heparin by 200units/hr to 1200units/hr = 12 ml/hr. PTT at 1400.
[2019-08-24] MEDS: ASPIRIN 81 MG ENTERIC COATED PO SCH (08:18)
[2019-08-24] MEDS: POTASSIUM CHLORIDE 10MEQ EA PO SCH (08:18)
[2019-08-24] MEDS: MIDODRINE HCL 5 MG TABLET PO SCH ×3 (08:18→16:00)
--- NOTE | 2019-08-24 08:30 | Diagnostic Imaging Report ---
EXAMINATION: CHEST SINGLE (PORTABLE) INDICATION: CHF. COMPARISON: Chest radiograph of 08/23/2019 FINDINGS: LINES/TUBES:Left chest AICD unchanged. Right IJ non tunneled central venous catheter terminates in the superior vena cava. LUNGS: There is perihilar fullness and indistinctness of the pulmonary vasculature. There are patchy opacities at the lung bases bilaterally. PLEURA:Small left pleural effusion is unchanged. MEDIASTINUM:Cardiomediastinal silhouette is enlarged, unchanged. BONES/SOFT TISSUES:No acute osseous abnormality. Status post median sternotomy. ABDOMEN:No free air under the diaphragm. IMPRESSION: Cardiomegaly with mild interstitial edema and small left pleural effusion. Patchy bibasilar opacities may reflect alveolar edema, atelectasis, or pneumonia in the appropriate clinical setting. Signed by: Dr. Aury Garcia MD on 08/24/2019 8:27 AM
[2019-08-24] MEDS: PANTOPRAZOLE 40 MG 10ML VIAL IV SCH ×2 (09:38→18:01)
[2019-08-24] MEDS ORDERED: ALBUMIN 25% 12.5GM 0.25 GM/ML BTL IV ONE ×3 (11:30→12:00)
--- NOTE | 2019-08-24 11:30 | NUR ---
Dr Acosta in to see pt. Noted change with increased resp rate, decreased bp, and c/o discomfort of the abdomen. Orders for KUB, albumin, and start dopamine prn.
[2019-08-24] MEDS: FUROSEMIDE INJ 10 MG/ML 4 ML VIAL IV SCH (11:40)
--- NOTE | 2019-08-24 12:01 | NUR ---
Dr Maya in to see pt. Noted decreased blood pressure, resp difficulty and, urine output at less than 20 ml /hr. A lasix drip was ordered.
--- NOTE | 2019-08-24 13:55 | Diagnostic Imaging Report ---
Exam: KUB -1 view Clinical History: Query obstruction. Comparison: CT abdomen/pelvis 08/18/2019. Findings/Impression: Nonspecific bowel gas pattern with a paucity of air within the small and large bowel. Some air is seen in the rectum. No evidence of free intraperitoneal air. No acute osseous abnormality. There are prostate fiducial markers. Signed by: Dr. Aury Garcia MD on 08/24/2019 1:52 PM
[2019-08-24] MEDS ORDERED: FUROSEMIDE INJ 100 MG in SODIUM CHLORIDE 0.9% 100 ML 90 ML IV SCH (14:00)
[2019-08-24] MEDS: NOREPINEPHRINE 8 MG/D5W 250 ML 250 ML IV SCH (14:50)
[2019-08-24 14:56] LABS: ABG HCO3 8 mmol/L (23-28); ABG PCO2 15 mmHg (41-51); ABG PO2 87 mmHg (80-105)
[2019-08-24] MEDS ORDERED: SODIUM BICARBONATE 8.4% SYRING 100 ML ONE (14:59)
--- NOTE | 2019-08-24 15:00 | NUR ---
Bipap. Pt has accepted bi-pap. Dr Acosta aware and ordered ABG, labs, echo. New orders for sodium bicarb and levo to start.
--- NOTE | 2019-08-24 15:15 | NUR ---
PTT 147. Heparin drip to stop for one hour. Resume heparin drip at 1000 units/ hour at 1615. PTT at 2215.
[2019-08-24] MEDS ORDERED: SODIUM BICARBONATE 8.4% INJ 50 ML SYR IV ONE (15:30)
[2019-08-24 15:35] LABS: ANION GAP 30.8 mmol/L (8-16); CALCIUM 9.6 mg/dL (8.4-10.2); CREATININE, SERUM 4.59 mg/dL (0.72-1.25); POTASSIUM 4.8 mmol/L (3.5-5.1)
[2019-08-24 15:41] LABS: CREATINE KINASE MB 3.9 ng/mL (0-5.0)
[2019-08-24] MEDS: SODIUM BICARBONATE 8.4% 150 ML in DEXTROSE 5% 1,000 ML IV SCH (16:22)
--- NOTE | 2019-08-24 16:30 | NUR ---
No urine output. Bladder scanner x6 attempt by two RNs demonstrated max of 17cc in urinary bladder. The position and patency of the catheter were checked. Dr Maya was notified. New lab results and condition up date also reported to Dr Maya. New orders received.
--- NOTE | 2019-08-24 17:00 | NUR ---
Dr tyrell Patten and Laureano have been notified of lab results and condition. Dr Tinsley states he will visit the patient.
--- NOTE | 2019-08-24 17:13 | NUR ---
Midline. Dr Acosta has ordered midline insertion if agreed by nephrology. Spoke with Dr Maya, nephrology, he agrees to midline. Order was placed.
[2019-08-24 17:36] LABS: BASOPHILS % 0.2 % (0.0-1.0); HEMATOCRIT 36.8 % (38.2-49.6); HEMOGLOBIN 11.4 g/dL (14.0-18.0); LYMPHOCYTES # (AUTO) 0.5 (1.0-3.2); LYMPHOCYTES % 2.4 % (18.0-39.1); MEAN CORPUSCULAR HEMOGLOBIN 31.8 pg (28-32); MEAN CORPUSCULAR VOLUME 102.8 fL (81-99); MONOCYTES # (AUTO) 2.6 (0.2-0.8); MONOCYTES % 12.3 % (4.4-11.3); NEUTROPHILS # (AUTO) 17.7 (2.1-6.9); NEUTROPHILS % 83.3 % (38.7-80.0); PLATELET COUNT 209 x10e3/uL (140-360); RED BLOOD COUNT 3.58 x10e6/uL (4.3-5.7); RED CELL DISTRIBUTION WIDTH 13.8 % (11.7-14.4)
--- NOTE | 2019-08-24 18:45 | NUR ---
Dr Boyer has been notified of pts condition and new orders.
--- NOTE | 2019-08-24 19:00 | NUR ---
Report received. Assumed care. Assessment done. See interventions. On Bipap with sats 96-98%. IVS: D52 with 3 amps NaHco3 @ 75ml/hr, Dopamine @ 3 mcg/kg/min, Levophed @ 9 mcg/min,Heparin @ 1000 units/hr, & Insulin @ 1 unit/hr. Family at bedside. Questions answered.
[2019-08-24] MEDS ORDERED: HEPARIN 25,000 UNIT DRIP IV ONE (19:09)
[2019-08-24 19:21] LABS: LYMPHOCYTES % (MANUAL) 2 % (19-48); MONOCYTES % (MANUAL) 10 % (3.4-9.0); NEUTROPHILS % (MANUAL) 88 % (40-74)
[2019-08-24 19:22] LABS: ANISOCYTOSIS SLIGHT; POLYCHROMASIA FEW
[2019-08-24 19:24] LABS: PLATELET ESTIMATE ADEQUATE; PLATELET MORPHOLOGY COMMENT NORMAL
[2019-08-24] MEDS ORDERED: AMIODARONE HCL 100 ML IV ONE (19:55)
[2019-08-24] MEDS ORDERED: AMIODARONE 900MG 0 ML IV ONE (19:55)
[2019-08-24] MEDS ORDERED: AMIODARONE HCL 150MG 100 ML IV SCH (20:00)
[2019-08-24] MEDS ORDERED: AMIODARONE HCL 360MG 200 ML IV SCH (20:00)
--- NOTE | 2019-08-24 20:00 | NUR ---
Call from Dr. Tinsley. Orders given. Midline in progress.
[2019-08-24] MEDS ORDERED: AMIODARONE HCL 150 MG in DEXTROSE 5% 100ML 100 ML IV SCH (20:30)
[2019-08-24] MEDS ORDERED: AMIODARONE HCL 900 MG in DEXTROSE 5 % 500ML BOTTLE 500 ML IV SCH (20:30)
--- NOTE | 2019-08-24 20:30 | NUR ---
Midline in place. Blood drawn for lab. Amiodarone bolus started.
--- NOTE | 2019-08-24 20:41 | Progress Note ---
DATE: 08/24/2019 Cardiology Progress Note SUBJECTIVE: Worsening shortness of breath today, requiring BiPAP. Oliguric, worsening renal failure. Family at bedside. The patient denies any active chest discomfort. OBJECTIVE: VITAL SIGNS: Temperature 98.2, heart rate 66, blood pressure 103/49, respiratory rate 29, and O2 saturation 98%. BMI 28.5. GENERAL: In mild distress, on salvage BiPAP, dopamine drip at 6 mcg/kg/minute. NECK: Jugular vein distended. CHEST: With decreased breath sounds in bilateral bases. CARDIOVASCULAR: Regular rate and rhythm. Normal S1 and S2. Systolic ejection murmur /6, gallop sound. ABDOMEN: Soft. Bowel sounds positive. EXTREMITIES: Trace edema. CARDIOVASCULAR MEDICATIONS: Reviewed. 1. Dopamine IV. 2. Aspirin 81 mg daily. 3. Bicarbonate drip. 4. Midodrine 5 mg t.i.d. STUDIES: Reviewed. Sodium 139, potassium 4.5, chloride 102, bicarbonate 11, BUN 63, creatinine 4.59, and glucose 117. White blood cells 16.4, hemoglobin 11.5, and platelets 168. PT 18.3, PTT , and INR 1.4. AST 178, ALT 445, alkaline phosphatase 53, total bilirubin 1.2, CK-MB 3, troponin I 14. ASSESSMENT: An 79-year-old man with severe sepsis and septic shock, now with decompensating state, profound metabolic acidosis, oliguric, acute renal failure, acute on chronic severe systolic heart failure requiring inotropes, acute respiratory failure requiring salvage BiPAP. RECOMMENDATIONS: I have discussed with the patient in the past for several attempts , which he had declined. At this point in time, he is worsening despite of initialling improvement for several days. He is now back on ionotropic support, on respiratory support. He kidneys seem to have worsened, they are oliguric. He has significant metabolic acidosis. At this point, consideration for renal replacement therapy. Continue salvage BiPAP, addressing goals of care. Continuing aspirin and inotropic support have been discussed with the patient and family members. His prognosis is very guarded with a high chance of , worsening condition during this hospital admission. He is in multiorgan failure and continuing to deteriorate. We will request re-interrogation of device to assess if there is any rhythm change house attendant the last 24 hours. MD ANKIT Silva/KETTY /[id number]
--- NOTE | 2019-08-24 20:41 | Progress Note ---
DATE: 08/24/2019 SUBJECTIVE: The patient is resting in bed. He has just had a midline IV access placed in the right arm. No acute distress. No report of vomiting. No report diarrhea. No overt medication reaction reported. OBJECTIVE: VITAL SIGNS: In the past 24 hours, his maximum temperature was up to 98.4 degrees Fahrenheit. His blood pressure currently 130/91. He has required vasopressor support. SKIN: Shows diffuse old ecchymosis, especially of the upper extremities. There is no gross pallor. No obvious icterus. No oropharyngeal lesions. NECK: Supple. CHEST: Symmetric. LUNGS: Sound fairly clear. HEART: Sounds are regular. There is no new murmur. ABDOMEN: Full, soft, and nontender with normal bowel sounds. EXTREMITIES: There is no acute erythema of his extremities otherwise. LABORATORY DATA: His white count currently 21.2, up from 16.4, it has been fluctuating; hemoglobin is 11.4, and platelet count 209. Differentials on his white count show 88% neutrophils. His serum creatinine 2.4 at presentation, 4.5 currently. There are no significant positive cultures. His AST is down to 178 from 249, ALT is up to 445 from 439, and total bilirubin is 1.2. IMPRESSION AND PLAN: He has increasing white count and worsening renal function, etiology is unclear. He has chronic cholecystitis with gallbladder dyskinesia. He has been on treatment with Zosyn. I suggest we discontinue Zosyn and start the patient on Zyvox and meropenem. Recheck blood and culture, urine culture, and stool for Clostridium difficile. I have discussed the impressions and plans with the ICU staff as well as with the patient's family at the bedside. MD LUC Hale/MODL /[id number]
[2019-08-24] MEDS: HEPARIN 25,000 UNIT 25,000 UNIT in DEXTROSE 5% 250ML 250 ML IV SCH (20:54)
[2019-08-24] MEDS: LINEZOLID 600 MG/D5W 300ML 300 ML IV SCH (20:57)
[2019-08-24] MEDS ORDERED: MEROPENEM 500MG/ NS 50ML 50 ML IV SCH (21:00)
--- NOTE | 2019-08-24 21:00 | NUR ---
Amiodarone started at 1mg/hr.
[2019-08-24 21:17] LABS: ANION GAP 27.2 mmol/L (8-16); CREATININE, SERUM 5.16 mg/dL (0.72-1.25); POTASSIUM 4.2 mmol/L (3.5-5.1)
--- NOTE | 2019-08-24 21:59 | NUR ---
Labs called to Dr. Maya. Asked if pt was agreeable to dialysis. Staff asked pt and he refuses dialysis. Dr. Maya advised of pt wishes.
[2019-08-24] MEDS: INSULIN REGULAR, HUMAN 3ML VL 100 UNIT in SODIUM CHLORIDE 0.9% 99 ML IV SCH ×2 (22:00)
[2019-08-25] VITALS (44 sets, daily range): BP systolic 71–131; BP diastolic 39–96
[2019-08-25] MEDS ORDERED: AMIODARONE HCL 360MG 200 ML IV SCH
--- NOTE | 2019-08-25 02:30 | NUR ---
Complete bed bath given. Bed linens changed.
--- NOTE | 2019-08-25 03:14 | NUR ---
Decreased Amiodarone to 0.5mg/hr.
[2019-08-25 05:34] LABS: BASOPHILS # (AUTO) 0.1 (0.0-0.1); BASOPHILS % 0.2 % (0.0-1.0); HEMATOCRIT 34.2 % (38.2-49.6); HEMOGLOBIN 11.4 g/dL (14.0-18.0); LYMPHOCYTES # (AUTO) 1.3 (1.0-3.2); LYMPHOCYTES % 4.7 % (18.0-39.1); MEAN CORPUSCULAR HEMOGLOBIN 31.8 pg (28-32); MEAN CORPUSCULAR HGB CONC 33.3 g/dL (31-35); MEAN CORPUSCULAR VOLUME 95.3 fL (81-99); MONOCYTES # (AUTO) 4.3 (0.2-0.8); MONOCYTES % 15.1 % (4.4-11.3); NEUTROPHILS # (AUTO) 22.1 (2.1-6.9); NEUTROPHILS % 78.6 % (38.7-80.0); PLATELET COUNT 171 x10e3/uL (140-360); RED BLOOD COUNT 3.59 x10e6/uL (4.3-5.7); RED CELL DISTRIBUTION WIDTH 13.5 % (11.7-14.4)
--- NOTE | 2019-08-25 05:48 | NUR ---
IM- progress note O/N no change ROS: unreliable v/s; revd PE BIPAP mask in place tired appearing anicteric ns1s2 reduced BS soft; nd; mild tenderness no e/t awake; skin dry flat affect labs/meds revd A/P: 79yoyo[age] Septic shock Diarrhea DEON/AMS Acute resp falure Acute cholecystitis NSTEMI DM2 PLAN IV abx; IVF; Heparin gtt Sx consult; Pulm consult; Cardio consult hba1c/lipids C.diff testing Insulin gtt PPI on AC Dispo: f/u further testing; cct>35mins 08/19/19 cont IV abx; give IVF with bicarbs; nephr consult; Hba1c 6.5; monitor closely; recheck labs later today; cct>35mins. 08-20 gallbladder dyskinesia 12% EF, gallbladder sludge; leukocytosis improving; cont antibiotics- IV zosyn; all cx negative to date; Renal fn poor; Updated pt. 08/21 Afebrile; renal fn poor; Transaminases elevated; BP remains low; all cx negative; Period of hypoxia, ABG shows Hypoxemia- use HiFlo. F/U CXR. 08/22 wean pressor; diuresis; will need cardiac ischemic eval; f/u labs; Some confusion; f/u labs; 08/23 F/u CXR 08/24 now only 2 L NC O2. More alert; continue care; transition to Med Tele. 08/25 pt decompensated yesterday, needing 2 pressors and worsening resp status and leukocytosis. continue broad spectrum abx and supportive care; Initiate [facility] s[facility] to med ctr for CRRT- after discussions with and pt's agreement; Magalys Odonnell MD, PhD.
[2019-08-25 06:02] LABS: ALBUMIN 3.4 g/dL (3.5-5.0); ALBUMIN/GLOBULIN RATIO 1.4 (0.8-2.0); ANION GAP 23.4 mmol/L (8-16); CALCIUM 8.6 mg/dL (8.4-10.2); CREATININE, SERUM 5.4 mg/dL (0.72-1.25); POTASSIUM 4.4 mmol/L (3.5-5.1)
[2019-08-25] MEDS: SODIUM BICARBONATE 8.4% 150 ML in DEXTROSE 5% 1,000 ML IV SCH (07:45)
[2019-08-25] MEDS: NOREPINEPHRINE 8 MG/D5W 250 ML 250 ML IV SCH (08:27)
[2019-08-25] MEDS: PANTOPRAZOLE 40 MG 10ML VIAL IV SCH (08:50)
[2019-08-25] MEDS: MIDODRINE HCL 5 MG TABLET PO SCH ×2 (08:50→12:56)
[2019-08-25] MEDS: ASPIRIN 81 MG ENTERIC COATED PO SCH (08:50)
[2019-08-25] MEDS: POTASSIUM CHLORIDE 10MEQ EA PO SCH (09:00)
--- NOTE | 2019-08-25 09:08 | Diagnostic Imaging Report ---
EXAMINATION: CHEST SINGLE (PORTABLE) INDICATION: Shortness of breath COMPARISON: Chest radiograph 08/24/2019 FINDINGS: LINES/TUBES:Right IJ central venous catheter terminates in the superior vena cava. Left chest AICD unchanged. EKG leads overlie the chest. LUNGS:The lungs are moderately inflated. There is perihilar fullness and indistinctness of the pulmonary vasculature. There is left basilar opacity silhouetting the left jorge diaphragm. PLEURA:Likely small bilateral layering pleural effusions. No pneumothorax. MEDIASTINUM:Cardiomediastinal silhouette is stably enlarged. Atherosclerotic calcifications of the thoracic aorta. BONES/SOFT TISSUES:No acute osseous injury. ABDOMEN:No free air under the diaphragm. IMPRESSION: Worsening pulmonary edema. Unchanged cardia megaly. Likely small bilateral layering pleural effusions. Patchy opacity at the left lung base silhouetting the left hemidiaphragm most likely represents a combination of airspace edema and subsegmental atelectasis. Signed by: Luis Solano MD on 08/25/2019 9:05 AM
[2019-08-25] MEDS: LINEZOLID 600 MG/D5W 300ML 300 ML IV SCH (09:10)
--- NOTE | 2019-08-25 10:57 | NUR ---
DR. WADE ROUNDED, INITIATING TRASNFER TO [facility] WHERE PATIENTS MD'S ARE. SPOKE WITH ZEAN BHANDARI WITH TRANSFER. NOTIFIED BUSINESS DEVELOPMENT MANAGER AND CASE MANAGEMENT. FAMILY AND PATIENT AGREEABLE TO TRANSFER
--- NOTE | 2019-08-25 10:58 | NUR ---
LEVOPHED WEANED OFF AT 1030AM BP 105/46 MAP 66,
[2019-08-25] MEDS ORDERED: FUROSEMIDE INJ 100 MG in SODIUM CHLORIDE 0.9% 100 ML 90 ML IV SCH (11:00)
--- NOTE | 2019-08-25 12:28 | NUR ---
ORDERS REC'D FOR TRANSFER TO [facility] FOR HIGHER LEVEL OF CARE TRANSFER INITIATED TO [facility] BY JAVI THOMSON MOT INITIATED AND SIGNED BY PT'S DTR MORENA POSEY AT BEDSIDE MOT INFORMATION CALLED TO JAVI THOMSON MGR OF ICU, DIAZ LEAL HERE AND CALLED DR MADSEN TO ASK IF PT IS STABLE FOR TRANSFER DIAZ TO F/U WITH TRANSFER
--- NOTE | 2019-08-25 12:30 | Progress Note ---
DATE: 08/25/2019 Renal Progress Note SUBJECTIVE: Followed for acute kidney injury on chronic kidney disease stage 4. The patient has had worsening respiratory status and worsening acute kidney injury on chronic kidney disease. Over the last 3 to 4 days, the patient started to get more fluid overload, has pulmonary edema on chest x-ray. The patient is anuric at this time. The patient is back on two pressors, low-dose dopamine and Levophed. Systolic is in the low 100 mmHg. The patient also has severe cardiomyopathy, has had acute NE. At this point, the patient is going to require continuous renal replacement therapy, which is not available at this hospital. He continues to be short of breath. He is on high-flow nasal cannula non-rebreather. OBJECTIVE: VITAL SIGNS: Noted. Blood pressure is 118/60 at this time, 87 pulse, 100% O2 sats, but on high-flow O2, 100% non-rebreather. LUNGS: Rhonchi bilaterally, diffusely over the lung ley. CARDIOVASCULAR: S1, S2. No rub. ABDOMEN: Soft. Positive bowel sounds. EXTREMITIES: 2+ edema. LABORATORY DATA: Reviewed. Sodium 135, potassium 4.4, chloride 107, bicarb 19, BUN 68, creatinine 5.4. IMPRESSION AND PLAN: 1. Acute kidney injury on chronic kidney disease stage 4. The patient has had worsening acute kidney injury on chronic kidney disease stage 4. The patient is not making any urine. He is fluid overloaded. He has urgent indication for acute started dialysis. The patient will not tolerate conventional dialysis or SLED. He will benefit from the CRRT with continuous renal replacement therapy, which is not available at this hospital. I have discussed the case with the patient's family members as well as the primary MD has been made aware by the nurse. The patient is going to be transferred to [facility] where CRRT is available and the patient's physicians are also at the hospital. For now, I will place him on Lasix drip at 20 mg/hour. We will also stop the bicarb drip since the patient is fluid overloaded. We will continue to monitor closely and make further recommendations. The patient is still here tomorrow, we will repeat labs again in the morning and make further recommendations. I would recommend urgent transfer of the patient as soon as possible today. 1. Hypotension. Continue vasopressor support. We will continue to monitor closely here in the ICU. If need to titrate up the vasopressors that would be fine from renal standpoint. 2. Pulmonary edema/fluid overload/congestive heart failure exacerbation. We will place on Lasix drip 20 mg/hour. However, I do not expect that he is going to make much urine. He will benefit from renal replacement therapy and in this setting he will benefit from continuous renal placement therapy for which he would need to be transferred to [facility]. 3. Metabolic acidosis from worsening kidney failure, fluid overload, acute on chronic kidney disease. He will benefit from renal replacement therapy as outlined above. We would discontinue bicarb drip since the patient is getting fluid overloaded. 1. Worsening liver function tests, likely shock liver secondary to hypoperfusion state. Scar Dillon MD TH/MODL /[id number]
--- NOTE | 2019-08-25 12:45 | Diagnostic Imaging Report ---
EXAM: Renal Ultrasound INDICATION: Prerenal azotemia COMPARISON: None TECHNIQUE: Transverse and longitudinal images of the kidneys and bladder were obtained. FINDINGS: Difficult exam due to patient's condition and positioning. Right Kidney: Length: 9.5 cm Appearance: Normal echogenicity. Collecting system: No hydronephrosis Stones: None Cyst/Mass: None Left Kidney: Length: 9.0 cm Appearance: Normal echogenicity. Collecting system: No hydronephrosis Stones: None Cyst/Mass: None Bladder: Alvarez catheter in place. Incidental note made of small left pleural effusion. IMPRESSION: No hydronephrosis. Small left pleural effusion. Signed by: Luis Solano MD on 08/25/2019 12:42 PM
--- NOTE | 2019-08-25 13:30 | Progress Note ---
DATE: 08/25/2019 Cardiology Progress note SUBJECTIVE: Short of breath on non-rebreather face mask, dopamine drip, amiodarone drip, on telemetry in sinus rhythm. OBJECTIVE: VITAL SIGNS: Temperature 97.8, heart rate 84, respiratory rate 28, blood pressure 108/58, O2 saturation 100% on non-rebreather face mask. GENERAL: No acute distress. NECK: JVP distended in lower half of neck. CHEST: With decreased breath sounds. CARDIOVASCULAR: Regular rate and rhythm. Normal S1, S2. Systolic ejection murmur. ABDOMEN: Soft. Bowel sounds positive. EXTREMITIES: Trace edema. CARDIOVASCULAR MEDICATIONS: Reviewed. Dopamine, off Levophed, on amiodarone, midodrine, furosemide drip. STUDIES: Reviewed. Sodium 135, potassium 4.4, chloride 97, bicarb 19, BUN 68, creatinine 5.4, glucose 224. White blood cells 28, hemoglobin 11.4, platelets 171. INR 1.4, PT 18.3, PTT 126. AST 1871, ALT 1210, alkaline phosphatase 43. ASSESSMENT: An 79-year-old man presented with severe sepsis with septic shock, acute on chronic severe heart failure, history of ICD, status post atrial tachycardia, now improved with amiodarone; cardiogenic shock Coronary artery disease with large infarct on admission and oliguric renal failure with worsening metabolic acidosis for which is being planned. Worsened respiratory failure, multiorgan failure. RECOMMENDATIONS: 1. Continue current antibiotics. 2. Overall guarded prognosis. Patient remains in critical state and worsening. Transfer to more higher level care as advised. The patient in the past has declined intra-aortic pump in the past, status post large WA, his worsening status has been discussed with the patient and family members. Rhythm baez he seems to have improved today after amiodarone for atrial tachycardia. His LFT pattern is most consistent with shock liver, therefore, not a good candidate at this point for long-term amiodarone use; however, given risk and benefit ratio of hemodynamic decompensation with very limited cardiopulmonary reserve, risk of current amio use outweights benefits. Epi Hdz MD AFV/MODL /[id number]
--- NOTE | 2019-08-25 16:32 | Progress Note ---
DATE: 08/25/2019 SUBJECTIVE: The patient is resting in bed, on oxygen by face mask. No acute respiratory distress. He is responsive. He has no pain complaints. No reported diarrhea. No report of vomiting. No other systemic complaints reported. OBJECTIVE: VITAL SIGNS: Maximum temperature in the past 24 hours up to 98.4 degrees Fahrenheit. His blood pressure currently 121/63. GENERAL: He is off vasopressors. He has mild generalized edema. HEENT: There is no gross pallor. No obvious icterus. No oropharyngeal lesions. NECK: Supple. CHEST: Symmetric. LUNGS: Sound fairly clear to auscultation. HEART: Sounds are regular. There is no new murmur. ABDOMEN: Full, soft, nontender to palpation. Bowel sounds are present. EXTREMITIES: No acute erythema of his extremities. LABORATORY DATA: His white count has increased to 28.1 from 21.2 with 78% neutrophils on an automated differential. There is 15% monocytes. His serum creatinine has increased to 5.4. His liver function tests have dramatically increased from 178 to 1871, AST 1871, ALT has increased from 445 to 1210, total bilirubin has increased to 2.0 from 1.2. Alkaline phosphatase is 43. Blood cultures collected on August 25 are being processed. There are no previous positive culture reports. Renal ultrasounds today showed no hydronephrosis. There is a small left pleural effusion. Chest x-ray reports patchy opacity at the left lung base. IMPRESSION: He has chronic cholecystitis. He has progressive leukocytosis and progressive worsening of his liver function tests while afebrile. The etiology is unclear. He needs to be evaluated for adverse medication reaction. We have recently changed his antibiotic treatment from Zosyn to a combination of linezolid and meropenem. Blood cultures ordered are being processed. We also ordered urine culture and stool for C diff, reports on these are not available. I suggest continue his antibiotics. Follow up on his cultures. Evaluate his medications for possible causes of his worsening liver function. I am told by the nursing staff and is confirmed by the family that the patient is to be transferred to the [facility]. I will discuss the case with the primary physician. Daniel Boyer MD ATF/MODL /[id number]
--- NOTE | 2019-08-25 18:04 | NUR ---
patient transferred to [facility] via ambulance. family at bedside and will meet patient at at [facility]. report given to Marlen SHI room 7109 all belongings transferred with family of patient.
== END 2019-08-25 15:37 | disposition short-term general hospital (02) | DRG 871 ==
LOC: ER 12:12 → ERHOLD 14:37 → ICU 15:42
PROVIDERS: ADMIT Internal Medicine; ATTEND Internal Medicine
PROC: 02HV33Z Insertion of Infusion Device into Superior Vena Cava, Percutaneous Approach (ICD-10-PCS; principal; 2019-08-18)
PROC: 3E043XZ Introduction of Vasopressor into Central Vein, Percutaneous Approach (ICD-10-PCS; 2019-08-18)
PROC: 5A09357 Assistance with Respiratory Ventilation, Less than 24 Consecutive Hours, Continuous Positive Airway Pressure (ICD-10-PCS; 2019-08-18)
PROC: 05HB33Z Insertion of Infusion Device into Right Basilic Vein, Percutaneous Approach (ICD-10-PCS; 2019-08-24)
PROC: 5A09357 Assistance with Respiratory Ventilation, Less than 24 Consecutive Hours, Continuous Positive Airway Pressure (ICD-10-PCS; 2019-08-24)
DX: A41.9 Sepsis, unspecified organism (principal); R65.21 Severe sepsis with septic shock; I21.4 Non-ST elevation (NSTEMI) myocardial infarction; I50.23 Acute on chronic systolic (congestive) heart failure; R57.0 Cardiogenic shock; K72.00 Acute and subacute hepatic failure without coma; N17.0 Acute kidney failure with tubular necrosis; J96.00 Acute respiratory failure, unspecified whether with hypoxia or hypercapnia; E87.2 Acidosis; I13.0 Hypertensive heart and chronic kidney disease with heart failure and stage 1 through stage 4 chronic kidney disease, or unspecified chronic kidney disease; N18.4 Chronic kidney disease, stage 4 (severe); I47.1 Supraventricular tachycardia; K81.9 Cholecystitis, unspecified; E11.22 Type 2 diabetes mellitus with diabetic chronic kidney disease; K81.1 Chronic cholecystitis; E78.5 Hyperlipidemia, unspecified; I25.10 Atherosclerotic heart disease of native coronary artery without angina pectoris; I73.9 Peripheral vascular disease, unspecified; L97.511 Non-pressure chronic ulcer of other part of right foot limited to breakdown of skin; L89.151 Pressure ulcer of sacral region, stage 1; R19.7 Diarrhea, unspecified; E11.65 Type 2 diabetes mellitus with hyperglycemia; Z79.4 Long term (current) use of insulin; Z79.02 Long term (current) use of antithrombotics/antiplatelets; Z95.1 Presence of aortocoronary bypass graft; Z95.810 Presence of automatic (implantable) cardiac defibrillator; Z79.82 Long term (current) use of aspirin
CPT/HCPCS: 36415; 36555; 36600; 51700; 71045; 71250; 74018; 74176; 76705; 76770; 78227; 80048; 80053; 80061; 80076; 81001; 82140; 82150; 82533; 82550; 82553; 82570; 82805; 82948; 83036; 83605; 83690; 83735; 83880; 84100; 84156; 84300; 84436; 84443; 84479; 84484; 85025; 85610; 85730; 87040; 87086; 87400; 87493; 93005; 93306; 94660; 96372; 97139; 99285; A9537; J0610; J1644; J1650; J1817; J1940; J2020; J2370; J2405; J2543; J2550; J7030; J7050; J7070; J7799